=== PATIENT | male | born 2000 | race African-American/Black ===

== ENCOUNTER 2021-03-24 08:49 | Emergency (ER) | payer OTHER, SELFPAY ==
--- NOTE | ~2021-03-24 | XR_ITS ---
EXAMINATION: XR humerus RT INDICATION: Right arm pain, initial encounter TECHNIQUE: Two views of the right humerus are obtained on three radiographs. COMPARISON: None available FINDINGS: There is an acute, traumatic, closed, mildly comminuted transverse fracture in the proximal shaft of the right humerus. Alignment at the shoulder and elbow appears normal. No additional acute osseous findings are evident. IMPRESSION: 1. Acute comminuted fracture of the proximal humerus. Reviewed, dictated and finalized at location A. HEN OPERATOR
[2021-03-24 09:06] VITALS: BP 133/68; PULSE 89; RESP 18; TEMP 36.4; O2SAT 100
--- NOTE | 2021-03-24 10:42 | ED.GENADULT ---
HPI - General Adult General Chief complaint: Extremity Injury, Upper Stated complaint: fall/arm injury Time Seen by Provider: 03/24/21 10:04 Source: patient Mode of arrival: ambulatory Limitations: no limitations History of Present Illness HPI narrative: Patient presents for evaluation of pain in the right upper arm. He indicates that this morning his father alarm was going off. He slept through the alarm. The police came and knocked on his door. When he went to answer the door, he slipped on water. He states his toilet had been overflowing and he was unaware of this. He landed on his right arm. He hit his head. He did not have a LOC. He is not on blood thinners. He states his pain level is 10/10 without radicular component. He does not provide me with a descriptive quality to the pain. No paresthesias. He is right hand dominant. He has not taken any medication to assist with his symptoms. He denies any other injuries. No additional complaints or concerns. Related Data Home Medications Medication Instructions Recorded Confirmed albuterol 90 mcg INHALATION PRN 03/24/21 03/24/21 Allergies Allergy/AdvReac Type Severity Reaction Status Date / Time egg Allergy Anaphylaxis Verified 03/24/21 09:09 Fish Containing Products Allergy Anaphylaxis Verified 03/24/21 09:09 tree nut Allergy Anaphylaxis Verified 03/24/21 09:09 dairy Allergy Anaphylaxis Uncoded 03/24/21 09:09 Review of Systems Review of Systems: CONSTITUTIONAL: Denies fever, chills, or sweats. EYES: Denies visual changes, redness, or discharge. ENT: Denies rhinorrhea, congestion, sore throat, or otalgia. CARDIOVASCULAR: Denies chest pain, palpitations, or edema. RESPIRATORY: Denies cough or dyspnea. GASTROINTESTINAL: Denies abdominal pain, nausea, vomiting, or diarrhea. GENITOURINARY: Denies dysuria or hematuria. SKIN: Denies rash or itching. MUSCULOSKELETAL: Reports pain in right upper arm. Denies back pain or myalgia. NEUROLOGIC: Denies headache, numbness, dizziness, or weakness. PSYCHIATRIC: Denies anxiety or depression. [facility] Past Medical History Medical History (Updated 03/24/21 @ 10:50 by Bandar Westfall, SERVICE ASSOCIATE, ) Asthma Surgical History Surgical History No pertinent past surgical history Family History Family History Mother No pertinent past medical history Social History Social History Smoking status: Never smoker Substance use: never Living arrangements: with roommate(s) Additional living arrangements comments: student apartment Occupation/Education: student Gender identity (if verbalized by the patient): Male Spiritual care concerns: No Exam Narrative: GENERAL: Well-appearing, well-nourished, and in no acute distress. HEAD: Normocephalic, atraumatic. EYES: PERRLA and EOMI. ENT: Nares clear, no rhinorrhea or epistaxis. Mucous membranes moist. Oropharynx without tonsillar hypertrophy exudate or other lesions. Bilateral TMs pearly oviedo nonbulging NECK: Supple. No adenopathy or masses. No carotid bruits or JVD CHEST: Clear to auscultation. No respiratory distress. No wheezes rales or rhonchi HEART: Regular rate and rhythm. No murmur heard. Normal peripheral pulses. ABDOMEN: Soft, nontender, nondistended, normal active bowel sounds. EXTREMITIES: Tenderness noted in proximal aspect of right upper arm. There is swelling present in right upper arm. Decreased ROM of right shoulder. Sensation intact throughout right upper extremity. Radial pulse 2+ SKIN: Warm, dry, no rash. NEURO: No focal deficits. Alert and oriented x3. PSYCH: Normal mood and affect. Course Course Emergency Course: This is a 20-year-old male who presented with complaints of right upper arm pain after experiencing a fall this morning. X-ray showed comminuted fractu
[2021-03-24] MEDS: oxyCODONE/ACETAMINOPHEN (*CRX) 5-325 MG TABLET 2 TABLET PO (11:20)
[2021-03-24] MEDS: ONDANSETRON HCL ODT 4 MG TABLET PO (11:20)
== END 2021-03-25 03:26 | disposition home or self-care (01) ==
PROVIDERS: Emergency Provider Nurse Practitioner
DX: S42.294A Other nondisplaced fracture of upper end of right humerus, initial encounter for closed fracture (principal); J45.909 Unspecified asthma, uncomplicated; W01.0XXA Fall on same level from slipping, tripping and stumbling without subsequent striking against object, initial encounter
CPT/HCPCS: 73060; 99284; A9270

== ENCOUNTER 2024-07-01 06:21 | Emergency (ER) | payer OTHER, SELFPAY ==
[2024-07-01] VITALS (25 sets, daily range): BP systolic 81–106; BP diastolic 36–63; PULSE 116–145; RESP 12–34; TEMP 36.7–37.6; O2SAT 79–100
--- NOTE | ~2024-07-01 | US_ITS ---
EXAMINATION: US abdomen complete DATE: 07/01/2024 11:29 INDICATION: Evaluate liver. Fever. Abnormal labs. TECHNIQUE: Multiple grayscale and Doppler ultrasound images of the abdomen were obtained. COMPARISON: None FINDINGS: The pancreatic head and body are normal in appearance. The pancreatic tail is not visualized. Visual ized proximal to mid inferior vena cava is normal. The cephalad abdominal aorta measures 1.2 cm in ma ximal diameter. Liver has normal contour, with a smooth surface. There is increased parenchymal echog enicity and coarsened echotexture consistent with diffuse hepatic steatosis. No liver lesion identifi ed. No intrahepatic biliary duct dilation suspected. Portal venous flow was seen in the hepatopetal, normal direction and has normal Doppler waveform. There is edematous-appearing wall thickening of th e nondilated gallbladder which measures up to 6 mm in thickness at the fundus. There appears be a min imal amount of gallbladder sludge at the neck of the gallbladder. No shadowing cholelithiasis. Sonogr aphic Valdovinos sign was reported as negative by the credit compliance officer. The common bile duct measures 3 mm russell meter which is normal. There is normal renal contour and echogenicity bilaterally. The right kidney m easures 9.1 x 4.1 x 4.8 cm and the left 9.9 x 4.2 x 4.3 cm. There are no focal renal lesions identif ied. There is no hydronephrosis. The spleen is normal measuring 9.2 cm maximal length. IMPRESSION: 1. Edematous-appearing gallbladder wall thickening which could be seen with acute cholecystitis howev er there is no gallbladder dilation, cholelithiasis or sonographic Valdovinos sign to specifically sugges t this and this is more likely related to liver disease such as hepatitis or cirrhosis, right heart f ailure, renal failure, sepsis or other generalized edema forming states. 2. No intra or extrahepatic biliary ductal dilation. 3. Diffuse hepatic steatosis. Reviewed, dictated and finalized at location A. OWS SERVER ENGINEER IMPRESSION: 1. Edematous-appearing gallbladder wall thickening which could be seen with acu te cholecystitis however there is no gallbladder dilation, cholelithiasis or so nographic Valdovinos sign to specifically suggest this and this is more likely rela ena to liver disease such as hepatitis or cirrhosis, right heart failure, renal failure, sepsis or other generalized edema forming states. 2. No intra or extrahepatic biliary ductal dilation. 3. Diffuse hepatic steatosis.
--- NOTE | ~2024-07-01 | CT_ITS ---
EXAMINATION: CTA chest PE protocol DATE: 07/01/2024 08:10 CLASSROOM INSTRUCTOR INDICATION: Boxing TECHNIQUE: Computed tomographic angiography (CTA) of the chest was performed with 100 mL Omnipaque-35 0 intravenous contrast. The dose-length product was 205.70 mGy-cm. Maximum intensity projection 3D-re constructions of the aorta and other arteries were constructed by the technologist on a separate work station. Automated exposure control and iterative reconstruction technique were employed. COMPARISON: Chest x-ray dated 07/01/2023. FINDINGS: Study is technically adequate without evidence for pulmonary embolism. Small pleural effusi ons. There is moderate pericardial effusion. No thoracic lymphadenopathy. There is patchy bilateral a irspace disease, most confluent in the lower lobes, consistent with pneumonia. No endobronchial lesio ns. No pneumothorax. IMPRESSION: 1. Patchy bilateral airspace disease, most confluent in the lower lobes, consistent with pneumonia. 2: Small bilateral pleural effusions, right greater than left. 3: Moderate pericardial effusion. 4: No evidence for pulmonary embolism. Reviewed, dictated and finalized at location B. SROOM INSTRUCTOR IMPRESSION: 1. Patchy bilateral airspace disease, most confluent in the lower lobes, consis tent with pneumonia. 2: Small bilateral pleural effusions, right greater than left. 3: Moderate pericardial effusion. 4: No evidence for pulmonary embolism.
--- NOTE | ~2024-07-01 | XR_ITS ---
Portable chest x-ray Comparison: None Clinical History: Sepsis, hypotension Findings: Lungs are clear, without focal consolidation or pleural effusion. Cardiomediastinal silho uette is stable. Bones and soft tissues are unremarkable. Impression: Clear lungs. Reviewed, dictated and finalized at location M. LAB TECHNOLOGIST Impression: Clear lungs.
--- NOTE | 2024-07-01 06:33 | ECG_ITS ---
Test Date: 2024-07-01 06:40:31 Measurements Intervals Clark Rate: 129 P: 231 FL: 211 QRS: 49 QRSD: 77 T: 65 QT: 314 QTc: 461 Interpretive Statements SINUS TACHYCARDIA WITH FIRST DEGREE AV BLOCK MINIMAL ST DEPRESSION- ANTEROLAT/INF LEADS ABNORMAL ECG No previous ECG available for comparison Electronically Signed On 07-01-2024 08:02:06 [employer] by Shimon Bailey D.O.
--- NOTE | 2024-07-01 06:35 | ED.GENADULT ---
HPI - General Adult General Chief complaint: Nausea/Vomiting/Diarrhea <Sonya Glasgow MD - Last Filed: 07/01/24 07:14> Stated complaint: lightheaded <Sonya Glasgow MD - Last Filed: 07/01/24 07:14> Time Seen by Provider: 07/01/24 06:33 <Sonya Glasgow MD - Last Filed: 07/01/24 07:14> History of Present Illness HPI narrative: Patient is a 23-year-old male who presents to the emergency department this is complaining of bilateral lower extremity edema, nausea vomiting and diarrhea. Patient states that his symptoms started approximately 1 week ago and have been progressively getting worse. He denies any past medical history other than mild asthma which he uses an inhaler for as needed. Denies any drug use including IV drugs. Denies any alcohol abuse. Denies any family history of cardiovascular disease. Upon EMS arrival, patient was administered 4 mg of IV Zofran for nausea. He was started on IV fluids due to hypotensive with the systolic blood pressure ranging between 70 to 80s. Patient is also tachycardic between 120 to 130s. <Sonya Glasgow MD - Last Filed: 07/01/24 07:14> Related Data Home medications: Home Medications ?Medication ?Instructions ?Recorded ?Confirmed ?Last Taken ?Type albuterol 90 mcg/actuation aerosol 90 mcg inhalation PRN 03/24/21 03/24/21 Unknown History inhaler <Sonya Glasgow MD - Last Filed: 07/01/24 07:14> Allergies/adverse reactions: Allergies Allergy/AdvReac Type Severity Reaction Status Date / Time egg Allergy Anaphylaxis Verified 07/01/24 06:50 Fish Containing Products Allergy Anaphylaxis Verified 07/01/24 06:50 tree nut Allergy Anaphylaxis Verified 07/01/24 06:50 dairy Allergy Anaphylaxis Uncoded 07/01/24 06:50 <Sonya Glasgow MD - Last Filed: 07/01/24 07:14> Review of Systems Review of Systems: All systems are reviewed and are negative unless stated otherwise in the HPI. <Sonya Glasgow MD - Last Filed: 07/01/24 07:14> PMFSH Past Medical History Medical History: Medical History Asthma <Sonya Glasgow MD - Last Filed: 07/01/24 07:14> Surgical History Surgical History: Surgical History No pertinent past surgical history <Sonya Glasgow MD - Last Filed: 07/01/24 07:14> Family History Family History: Family History Mother No pertinent past medical history <Sonya Glasgow MD - Last Filed: 07/01/24 07:14> Social History Social History: Social History Smoking status: Never smoker Substance use: never Living arrangements: with roommate(s) Additional living arrangements comments: student apartment Occupation/Education: student Gender identity (if verbalized by the patient): Male Spiritual care concerns: No <Sonya Glasgow MD - Last Filed: 07/01/24 07:14> Exam Narrative: General: Alert, awake, afebrile, in no acute distress. HEENT: PERRL, no rhinorrhea, no post nasal drip, oropharynx clear. Neck: Trachea midline, no JVD, no lymphadenopathy. Cardiovascular: Tachycardic with regular rhythm, no murmurs, rubs or gallops, bilateral lower extremity edema. Respiratory: Clear to auscultation bilaterally, no tachypnea, no wheezing, no rhonchi, no rubs, no respiratory distress. Abdomen: Soft, nontender, nondistended, no rebound, no guarding, no peritoneal signs. Musculoskeletal: No joint swelling or deformity, normal muscle tone. Skin: No rashes or petechia, no signs of infection. Psychiatric: Alert and oriented, normal behavior and judgment for situation. Neurological: Alert and oriented to person, place, and time. Follows all commands. No focal deficits, speech is clear and fluent. <Sonya Glasgow MD - Last Filed: 07/01/24 07:14> Course Course Emergency Course: 1035: Patient is a very complex case. Discussed with ICU and Cardiology here, unfortunately we do not have hematology and there appears to be a component of vitamin deficiency and potentially hemolytic anemia. Adolph test added on. IM B12 being given. Will also give IV steroids and transfuse 2 units. I have been in touch with [facility] in [place]. Dr. Valles with the hospitalist service has accepted the patient for transfer. He would like the patient received an abdominal ultrasound and we are still waiting urine results. Will contact them. I have spoken with the patient and his mother. Patient has received IV calcium gluconate as well as IV Zosyn and vancomycin for pneumonia. Blood was cultured. He received 2 L of IV fluid for fluid resuscitation. 1203: Re-contacted Dr. Valles. Updated him on patient's condition, blood pressure still in the upper 80s and heart rate in the 120s. We discussed the ultrasound that was requested as well as urinalysis. Discussed possible central line but it is felt that patient needs blood and albumin that is about be started as opposed to additional saline boluses or vasopressors at this time. We now have a bed at the facility in are arranging transport. <Ry Ha MD - Last Filed: 07/01/24 12:04> Vital Signs Vital signs: Vital Signs Temperature 99.1 F 07/01/24 06:27 Pulse Rate 126 H 07/01/24 06:27 Respiratory Rate 23 H 07/01/24 06:27 Blood Pressure 89/36 L 07/01/24 06:27 Pulse Oximetry 79 L 07/01/24 06:27 Oxygen Delivery Room Air 07/01/24 06:27 Temperature 98.1 F 07/01/24 11:52 Pulse Rate 130 H 07/01/24 11:52 Respiratory Rate 25 H 07/01/24 11:52 Blood Pressure 83/42 L 07/01/24 11:52 Pulse Oximetry 97 07/01/24 11:52 Oxygen Delivery Nasal Cannula 07/01/24 06:39 Oxygen Flow Rate 3 07/01/24 06:39 <Sonya Glasgow MD - Last Filed: 07/01/24 07:14> Vital Signs Temperature 99.1 F 07/01/24 06:27 Pulse Rate 126 H 07/01/24 06:27 Respiratory Rate 23 H 07/01/24 06:27 Blood Pressure 89/36 L 07/01/24 06:27 Pulse Oximetry 79 L 07/01/24 06:27 Oxygen Delivery Room Air 07/01/24 06:27 Temperature 98.1 F 07/01/24 11:52 Pulse Rate 130 H 07/01/24 11:52 Respiratory Rate 25 H 07/01/24 11:52 Blood Pressure 83/42 L 07/01/24 11:52 Pulse Oximetry 97 07/01/24 11:52 Oxygen Delivery Nasal Cannula 07/01/24 06:39 Oxygen Flow Rate 3 07/01/24 06:39 <Ry Ha MD - Last Filed: 07/01/24 12:04> Medical Decision Making MDM Narrative Medical decision making narrative: The patient was evaluated by myself in the emergency department. History is obtained from patient who is an independent historian along with EMS report and physical exam was performed. External medical records were reviewed at this time. IV was established and pertinent tests were ordered. Patient was noted to be hypoxic with an SpO2 of 79% on room air and he was placed on 2 L nasal cannula. Patient was administered full sepsis bolus with normal saline and started on IV antibiotics with vancomycin and Zosyn due to concern for septic shock pending source identification. EKG was obtained which revealed sinus tachycardia rate of 129 beats per minute. No ST changes, T wave inversions or evidence of acute ischemia. EKG was independently interpreted by me and is currently pending official cardiology read. Imaging studies were obtained at this time including a portable chest x-ray which revealed clear lungs, cardiomegaly. Chest x-ray currently pending official radiology read. Patient was signed out to AM ED physician pending remainder of the workup. <Sonya Glasgow MD - Last Filed: 07/01/24 07:14> Vital Signs Vital Signs: Vital Signs Temperature 99.1 F 07/01/24 06:27 Pulse Rate 126 H 07/01/24 06:27 Respiratory Rate 23 H 07/01/24 06:27 Blood Pressure 89/36 L 07/01/24 06:27 Pulse Oximetry 79 L 07/01/24 06:27 Oxygen Delivery Room Air 07/01/24 06:27 Temperature 98.1 F 07/01/24 11:52 Pulse Rate 130 H 07/01/24 11:52 Respiratory Rate 25 H 07/01/24 11:52 Blood Pressure 83/42 L 07/01/24 11:52 Pulse Oximetry 97 07/01/24 11:52 Oxygen Delivery Nasal Cannula 07/01/24 06:39 Oxygen Flow Rate 3 07/01/24 06:39 <Sonya Glasgow MD - Last Filed: 07/01/24 07:14> Vital Signs Temperature 99.1 F 07/01/24 06:27 Pulse Rate 126 H 07/01/24 06:27 Respiratory Rate 23 H 07/01/24 06:27 Blood Pressure 89/36 L 07/01/24 06:27 Pulse Oximetry 79 L 07/01/24 06:27 Oxygen Delivery Room Air 07/01/24 06:27 Temperature 98.1 F 07/01/24 11:52 Pulse Rate 130 H 07/01/24 11:52 Respiratory Rate 25 H 07/01/24 11:52 Blood Pressure 83/42 L 07/01/24 11:52 Pulse Oximetry 97 07/01/24 11:52 Oxygen Delivery Nasal Cannula 07/01/24 06:39 Oxygen Flow Rate 3 07/01/24 06:39 <Ry Ha MD - Last Filed: 07/01/24 12:04> Lab Data Result diagrams: 07/01/24 06:44 07/01/24 06:44 <Sonya Glasgow MD - Last Filed: 07/01/24 07:14> Labs: Lab Results 07/01/24 07/01/24 07/01/24 Range/Units 06:44 06:53 07:14 WBC 4.6 (4.5-10.0) K/mm3 RBC 1.21 L (4.6-6.20) M/mm3 Hgb 5.4 L* (14.0-18.0) g/dL Hct 16.7 L* (42.0-52.0) % MCV 138.0 H (80-100) fl MCH 44.6 H (26-34) pg MCHC 32.3 (32-36) g/dl RDW 28.8 H (11.5-14.5) % Plt Count 225 (150-375) k/mm3 MPV 12.1 H (7.4-10.4) fl Immature Gran % (Auto) Not Reportable Neut % (Auto) Not Reportable Lymph % (Auto) Not Reportable [place] % (Auto) Not Reportable Eos % (Auto) Not Reportable Baso % (Auto) Not Reportable Lymph # (Auto) Not Reportable [place] # (Auto) Not Reportable Eos # (Auto) Not Reportable Baso # (Auto) Not Reportable Abs Immat Gran (auto) Not Reportable Absolute Neuts (auto) Not Reportable Absolute Nucleated RBC Not Reportable Total Counted 100 Neutrophils % (Manual) 86 H (46-73) % Band Neutrophils % 8 H (0-6) % Lymphocytes % (Manual) 5 L (18-44) % Monocytes % (Manual) 1 L (3-9) % Nucleated RBC % Not Reportable Abs Neuts (Manual) 4.32 (1.3-6.7) K/mm3 Abs Lymphs (Manual) 0.23 L (1.1-4.5) K/mm3 Abs Monocytes (Manual) 0.04 L (0.1-0.90) K/mm3 Nucleated RBCs 4 % Platelet Estimate Adequate (Adequate) Large Platelets Present Giant Platelets Present Hypochromasia 2+ Poikilocytosis 2+ Anisocytosis 3+ Target Cells 1+ Tear Drop Cells 2+ Ovalocytes 2+ Helmet Cells 1+ Acanthocytes (Spur) 1+ Schistocytes 1+ Absolute Retic 0.05 (0.02-0.10) 10^6/uL Percent Retic 4.03 (0.7-4.3) % Immature Retic Fraction 24.7 H (3.0-15.9) % Retic Hgb Content 40.4 H (28.2-36.6) pg PT 27.0 H (11.1-14.7) Seconds INR 2.5 APTT 42.5 H (22.3-36.8) Seconds Sodium 140 (137-145) mmol/L Potassium 3.6 (3.4-5.0) mmol/L Chloride 113 H (98-107) mmol/L Carbon Dioxide 20 L (22-30) mmol/L Anion Gap 7 (4-12) mmol/L BUN 5 L (9-20) mg/dL Creatinine 0.65 L (0.7-1.3) mg/dL Estim Creat Clear Calc 129 ml/min Estimated GFR > 60 (59 - ) Glucose 99 (65-110) mg/dL POC Capillary Glucose 66 (65-105) mg/dl Lactic Acid 3.7 H (0.7-2.0) mmol/L Calcium 4.4 L* (8.4-10.2) mg/dL Magnesium 1.6 (1.6-2.3) mg/dL Iron 34 L (49-181) ug/dL TIBC 101 L (265-497) ug/dL % Saturation 34 (20-50) % Ferritin 156.00 (17.9-464) ng/mL Total Bilirubin 1.7 H (0.2-1.3) mg/dL AST 38 (17-59) U/L ALT 19 (6-50) U/L Alkaline Phosphatase 94 (38-126) U/L Lactate Dehydrogenase 939 H (120-246) U/L Troponin I 0.024 (0.000-0.034) ng/mL NT-Pro-B Natriuret Pep 570 H (19.9-100) pg/mL Total Protein 5.0 L (6.3-8.2) g/dL Albumin 1.8 L (3.5-5.1) g/dL Lipase 27 (23-300) U/L Vitamin B12 < 159.0 L (239-931) pg/mL Folate 4.9 (2.76->20) ng/mL TSH (Reflex) 2.050 (0.465-4.68) uIU/mL Urine Color (Yellow) Urine Appearance (Clear) Urine pH (5.0-9.0) Ur Specific [place] (1.001-1.035) Urine Protein (Negative) mg/dL Urine Glucose (UA) (Negative) mg/dL Urine Ketones (Negative) mg/dL Ur Blood (Man) (Negative) Urine Nitrate (Negative) Urine Bilirubin (Negative) Urine Urobilinogen (<2.0) mg/dL Add Ur Microanalysis Leukocyte Esterase Rfl (Negative) PAYTON/UL Urine RBC (0-2) /hpf Urine WBC (0-3) /hpf Ur Squamous Epith Cells (Few) /hpf Urine Bacteria /hpf Urine Casts Hyaline Casts (None) /lpf Nasal MRSA (PCR) (NOT DETECTE) Influenza A (RT-PCR) Negative (Negative) Influenza B (RT-PCR) Negative (Negative) RSV (RT-PCR) Negative (Negative) SARS-CoV-2 RNA (RT-PCR) Negative (Negative) Blood Type Antibody Screen CARMEN, Poly Interpret Crossmatch 07/01/24 07/01/24 07/01/24 Range/Units 07:16 07:18 10:19 WBC (4.5-10.0) K/mm3 RBC (4.6-6.20) M/mm3 Hgb (14.0-18.0) g/dL Hct (42.0-52.0) % MCV (80-100) fl MCH (26-34) pg MCHC (32-36) g/dl RDW (11.5-14.5) % Plt Count (150-375) k/mm3 MPV (7.4-10.4) fl Immature Gran % (Auto) Neut % (Auto) Lymph % (Auto) [place] % (Auto) Eos % (Auto) Baso % (Auto) Lymph # (Auto) [place] # (Auto) Eos # (Auto) Baso # (Auto) Abs Immat Gran (auto) Absolute Neuts (auto) Absolute Nucleated RBC Total Counted Neutrophils % (Manual) (46-73) % Band Neutrophils % (0-6) % Lymphocytes % (Manual) (18-44) % Monocytes % (Manual) (3-9) % Nucleated RBC % Abs Neuts (Manual) (1.3-6.7) K/mm3 Abs Lymphs (Manual) (1.1-4.5) K/mm3 Abs Monocytes (Manual) (0.1-0.90) K/mm3 Nucleated RBCs % Platelet Estimate (Adequate) Large Platelets Giant Platelets Hypochromasia Poikilocytosis Anisocytosis Target Cells Tear Drop Cells Ovalocytes Helmet Cells Acanthocytes (Spur) Schistocytes Absolute Retic (0.02-0.10) 10^6/uL Percent Retic (0.7-4.3) % Immature Retic Fraction (3.0-15.9) % Retic Hgb Content (28.2-36.6) pg PT (11.1-14.7) Seconds INR APTT (22.3-36.8) Seconds Sodium (137-145) mmol/L Potassium (3.4-5.0) mmol/L Chloride (98-107) mmol/L Carbon Dioxide (22-30) mmol/L Anion Gap (4-12) mmol/L BUN (9-20) mg/dL Creatinine (0.7-1.3) mg/dL Estim Creat Clear Calc ml/min Estimated GFR (59 - ) Glucose (65-110) mg/dL POC Capillary Glucose (65-105) mg/dl Lactic Acid 4.7 H* (0.7-2.0) mmol/L Calcium (8.4-10.2) mg/dL Magnesium (1.6-2.3) mg/dL Iron (49-181) ug/dL TIBC (265-497) ug/dL % Saturation (20-50) % Ferritin (17.9-464) ng/mL Total Bilirubin (0.2-1.3) mg/dL AST (17-59) U/L ALT (6-50) U/L Alkaline Phosphatase (38-126) U/L Lactate Dehydrogenase (120-246) U/L Troponin I (0.000-0.034) ng/mL NT-Pro-B Natriuret Pep (19.9-100) pg/mL Total Protein (6.3-8.2) g/dL Albumin (3.5-5.1) g/dL Lipase (23-300) U/L Vitamin B12 (239-931) pg/mL Folate (2.76->20) ng/mL TSH (Reflex) (0.465-4.68) uIU/mL Urine Color (Yellow) Urine Appearance (Clear) Urine pH (5.0-9.0) Ur Specific [place] (1.001-1.035) Urine Protein (Negative) mg/dL Urine Glucose (UA) (Negative) mg/dL Urine Ketones (Negative) mg/dL Ur Blood (Man) (Negative) Urine Nitrate (Negative) Urine Bilirubin (Negative) Urine Urobilinogen (<2.0) mg/dL Add Ur Microanalysis Leukocyte Esterase Rfl (Negative) PAYTON/UL Urine RBC (0-2) /hpf Urine WBC (0-3) /hpf Ur Squamous Epith Cells (Few) /hpf Urine Bacteria /hpf Urine Casts Hyaline Casts (None) /lpf Nasal MRSA (PCR) Not detected (NOT DETECTE) Influenza A (RT-PCR) (Negative) Influenza B (RT-PCR) (Negative) RSV (RT-PCR) (Negative) SARS-CoV-2 RNA (RT-PCR) (Negative) Blood Type A Positive Antibody Screen Negative CARMEN, Poly Interpret Neg Crossmatch See Detail 07/01/24 Range/Units 10:45 WBC (4.5-10.0) K/mm3 RBC (4.6-6.20) M/mm3 Hgb (14.0-18.0) g/dL Hct (42.0-52.0) % MCV (80-100) fl MCH (26-34) pg MCHC (32-36) g/dl RDW (11.5-14.5) % Plt Count (150-375) k/mm3 MPV (7.4-10.4) fl Immature Gran % (Auto) Neut % (Auto) Lymph % (Auto) [place] % (Auto) Eos % (Auto) Baso % (Auto) Lymph # (Auto) [place] # (Auto) Eos # (Auto) Baso # (Auto) Abs Immat Gran (auto) Absolute Neuts (auto) Absolute Nucleated RBC Total Counted Neutrophils % (Manual) (46-73) % Band Neutrophils % (0-6) % Lymphocytes % (Manual) (18-44) % Monocytes % (Manual) (3-9) % Nucleated RBC % Abs Neuts (Manual) (1.3-6.7) K/mm3 Abs Lymphs (Manual) (1.1-4.5) K/mm3 Abs Monocytes (Manual) (0.1-0.90) K/mm3 Nucleated RBCs % Platelet Estimate (Adequate) Large Platelets Giant Platelets Hypochromasia Poikilocytosis Anisocytosis Target Cells Tear Drop Cells Ovalocytes Helmet Cells Acanthocytes (Spur) Schistocytes Absolute Retic (0.02-0.10) 10^6/uL Percent Retic (0.7-4.3) % Immature Retic Fraction (3.0-15.9) % Retic Hgb Content (28.2-36.6) pg PT (11.1-14.7) Seconds INR APTT (22.3-36.8) Seconds Sodium (137-145) mmol/L Potassium (3.4-5.0) mmol/L Chloride (98-107) mmol/L Carbon Dioxide (22-30) mmol/L Anion Gap (4-12) mmol/L BUN (9-20) mg/dL Creatinine (0.7-1.3) mg/dL Estim Creat Clear Calc ml/min Estimated GFR (59 - ) Glucose (65-110) mg/dL POC Capillary Glucose (65-105) mg/dl Lactic Acid (0.7-2.0) mmol/L Calcium (8.4-10.2) mg/dL Magnesium (1.6-2.3) mg/dL Iron (49-181) ug/dL TIBC (265-497) ug/dL % Saturation (20-50) % Ferritin (17.9-464) ng/mL Total Bilirubin (0.2-1.3) mg/dL AST (17-59) U/L ALT (6-50) U/L Alkaline Phosphatase (38-126) U/L Lactate Dehydrogenase (120-246) U/L Troponin I (0.000-0.034) ng/mL NT-Pro-B Natriuret Pep (19.9-100) pg/mL Total Protein (6.3-8.2) g/dL Albumin (3.5-5.1) g/dL Lipase (23-300) U/L Vitamin B12 (239-931) pg/mL Folate (2.76->20) ng/mL TSH (Reflex) (0.465-4.68) uIU/mL Urine Color Yellow (Yellow) Urine Appearance Clear (Clear) Urine pH 7.5 (5.0-9.0) Ur Specific [place] 1.042 H (1.001-1.035) Urine Protein Trace (Negative) mg/dL Urine Glucose (UA) Negative (Negative) mg/dL Urine Ketones Negative (Negative) mg/dL Ur Blood (Man) 2+ H (Negative) Urine Nitrate Positive H (Negative) Urine Bilirubin Negative (Negative) Urine Urobilinogen 1.0 (<2.0) mg/dL Add Ur Microanalysis Reviewed Leukocyte Esterase Rfl 1+ H (Negative) PAYTON/UL Urine RBC 11-20 H (0-2) /hpf Urine WBC 0-5 (0-3) /hpf Ur Squamous Epith Cells None seen (Few) /hpf Urine Bacteria None seen /hpf Urine Casts 3-5 Hyaline Casts Present (None) /lpf Nasal MRSA (PCR) (NOT DETECTE) Influenza A (RT-PCR) (Negative) Influenza B (RT-PCR) (Negative) RSV (RT-PCR) (Negative) SARS-CoV-2 RNA (RT-PCR) (Negative) Blood Type Antibody Screen CARMEN, Poly Interpret Crossmatch <Sonya Glasgow MD - Last Filed: 07/01/24 07:14> Lab Results 07/01/24 07/01/24 07/01/24 Range/Units 06:44 06:53 07:14 WBC 4.6 (4.5-10.0) K/mm3 RBC 1.21 L (4.6-6.20) M/mm3 Hgb 5.4 L* (14.0-18.0) g/dL Hct 16.7 L* (42.0-52.0) % MCV 138.0 H (80-100) fl MCH 44.6 H (26-34) pg MCHC 32.3 (32-36) g/dl RDW 28.8 H (11.5-14.5) % Plt Count 225 (150-375) k/mm3 MPV 12.1 H (7.4-10.4) fl Immature Gran % (Auto) Not Reportable Neut % (Auto) Not Reportable Lymph % (Auto) Not Reportable [place] % (Auto) Not Reportable Eos % (Auto) Not Reportable Baso % (Auto) Not Reportable Lymph # (Auto) Not Reportable [place] # (Auto) Not Reportable Eos # (Auto) Not Reportable Baso # (Auto) Not Reportable Abs Immat Gran (auto) Not Reportable Absolute Neuts (auto) Not Reportable Absolute Nucleated RBC Not Reportable Total Counted 100 Neutrophils % (Manual) 86 H (46-73) % Band Neutrophils % 8 H (0-6) % Lymphocytes % (Manual) 5 L (18-44) % Monocytes % (Manual) 1 L (3-9) % Nucleated RBC % Not Reportable Abs Neuts (Manual) 4.32 (1.3-6.7) K/mm3 Abs Lymphs (Manual) 0.23 L (1.1-4.5) K/mm3 Abs Monocytes (Manual) 0.04 L (0.1-0.90) K/mm3 Nucleated RBCs 4 % Platelet Estimate Adequate (Adequate) Large Platelets Present Giant Platelets Present Hypochromasia 2+ Poikilocytosis 2+ Anisocytosis 3+ Target Cells 1+ Tear Drop Cells 2+ Ovalocytes 2+ Helmet Cells 1+ Acanthocytes (Spur) 1+ Schistocytes 1+ Absolute Retic 0.05 (0.02-0.10) 10^6/uL Percent Retic 4.03 (0.7-4.3) % Immature Retic Fraction 24.7 H (3.0-15.9) % Retic Hgb Content 40.4 H (28.2-36.6) pg PT 27.0 H (11.1-14.7) Seconds INR 2.5 APTT 42.5 H (22.3-36.8) Seconds Sodium 140 (137-145) mmol/L Potassium 3.6 (3.4-5.0) mmol/L Chloride 113 H (98-107) mmol/L Carbon Dioxide 20 L (22-30) mmol/L Anion Gap 7 (4-12) mmol/L BUN 5 L (9-20) mg/dL Creatinine 0.65 L (0.7-1.3) mg/dL Estim Creat Clear Calc 129 ml/min Estimated GFR > 60 (59 - ) Glucose 99 (65-110) mg/dL POC Capillary Glucose 66 (65-105) mg/dl Lactic Acid 3.7 H (0.7-2.0) mmol/L Calcium 4.4 L* (8.4-10.2) mg/dL Magnesium 1.6 (1.6-2.3) mg/dL Iron 34 L (49-181) ug/dL TIBC 101 L (265-497) ug/dL % Saturation 34 (20-50) % Ferritin 156.00 (17.9-464) ng/mL Total Bilirubin 1.7 H (0.2-1.3) mg/dL AST 38 (17-59) U/L ALT 19 (6-50) U/L Alkaline Phosphatase 94 (38-126) U/L Lactate Dehydrogenase 939 H (120-246) U/L Troponin I 0.024 (0.000-0.034) ng/mL NT-Pro-B Natriuret Pep 570 H (19.9-100) pg/mL Total Protein 5.0 L (6.3-8.2) g/dL Albumin 1.8 L (3.5-5.1) g/dL Lipase 27 (23-300) U/L Vitamin B12 < 159.0 L (239-931) pg/mL Folate 4.9 (2.76->20) ng/mL TSH (Reflex) 2.050 (0.465-4.68) uIU/mL Urine Color (Yellow) Urine Appearance (Clear) Urine pH (5.0-9.0) Ur Specific [place] (1.001-1.035) Urine Protein (Negative) mg/dL Urine Glucose (UA) (Negative) mg/dL Urine Ketones (Negative) mg/dL Ur Blood (Man) (Negative) Urine Nitrate (Negative) Urine Bilirubin (Negative) Urine Urobilinogen (<2.0) mg/dL Add Ur Microanalysis Leukocyte Esterase Rfl (Negative) PAYTON/UL Urine RBC (0-2) /hpf Urine WBC (0-3) /hpf Ur Squamous Epith Cells (Few) /hpf Urine Bacteria /hpf Urine Casts Hyaline Casts (None) /lpf Nasal MRSA (PCR) (NOT DETECTE) Influenza A (RT-PCR) Negative (Negative) Influenza B (RT-PCR) Negative (Negative) RSV (RT-PCR) Negative (Negative) SARS-CoV-2 RNA (RT-PCR) Negative (Negative) Blood Type Antibody Screen CARMEN, Poly Interpret Crossmatch 07/01/24 07/01/24 07/01/24 Range/Units 07:16 07:18 10:19 WBC (4.5-10.0) K/mm3 RBC (4.6-6.20) M/mm3 Hgb (14.0-18.0) g/dL Hct (42.0-52.0) % MCV (80-100) fl MCH (26-34) pg MCHC (32-36) g/dl RDW (11.5-14.5) % Plt Count (150-375) k/mm3 MPV (7.4-10.4) fl Immature Gran % (Auto) Neut % (Auto) Lymph % (Auto) [place] % (Auto) Eos % (Auto) Baso % (Auto) Lymph # (Auto) [place] # (Auto) Eos # (Auto) Baso # (Auto) Abs Immat Gran (auto) Absolute Neuts (auto) Absolute Nucleated RBC Total Counted Neutrophils % (Manual) (46-73) % Band Neutrophils % (0-6) % Lymphocytes % (Manual) (18-44) % Monocytes % (Manual) (3-9) % Nucleated RBC % Abs Neuts (Manual) (1.3-6.7) K/mm3 Abs Lymphs (Manual) (1.1-4.5) K/mm3 Abs Monocytes (Manual) (0.1-0.90) K/mm3 Nucleated RBCs % Platelet Estimate (Adequate) Large Platelets Giant Platelets Hypochromasia Poikilocytosis Anisocytosis Target Cells Tear Drop Cells Ovalocytes Helmet Cells Acanthocytes (Spur) Schistocytes Absolute Retic (0.02-0.10) 10^6/uL Percent Retic (0.7-4.3) % Immature Retic Fraction (3.0-15.9) % Retic Hgb Content (28.2-36.6) pg PT (11.1-14.7) Seconds INR APTT (22.3-36.8) Seconds Sodium (137-145) mmol/L Potassium (3.4-5.0) mmol/L Chloride (98-107) mmol/L Carbon Dioxide (22-30) mmol/L Anion Gap (4-12) mmol/L BUN (9-20) mg/dL Creatinine (0.7-1.3) mg/dL Estim Creat Clear Calc ml/min Estimated GFR (59 - ) Glucose (65-110) mg/dL POC Capillary Glucose (65-105) mg/dl Lactic Acid 4.7 H* (0.7-2.0) mmol/L Calcium (8.4-10.2) mg/dL Magnesium (1.6-2.3) mg/dL Iron (49-181) ug/dL TIBC (265-497) ug/dL % Saturation (20-50) % Ferritin (17.9-464) ng/mL Total Bilirubin (0.2-1.3) mg/dL AST (17-59) U/L ALT (6-50) U/L Alkaline Phosphatase (38-126) U/L Lactate Dehydrogenase (120-246) U/L Troponin I (0.000-0.034) ng/mL NT-Pro-B Natriuret Pep (19.9-100) pg/mL Total Protein (6.3-8.2) g/dL Albumin (3.5-5.1) g/dL Lipase (23-300) U/L Vitamin B12 (239-931) pg/mL Folate (2.76->20) ng/mL TSH (Reflex) (0.465-4.68) uIU/mL Urine Color (Yellow) Urine Appearance (Clear) Urine pH (5.0-9.0) Ur Specific [place] (1.001-1.035) Urine Protein (Negative) mg/dL Urine Glucose (UA) (Negative) mg/dL Urine Ketones (Negative) mg/dL Ur Blood (Man) (Negative) Urine Nitrate (Negative) Urine Bilirubin (Negative) Urine Urobilinogen (<2.0) mg/dL Add Ur Microanalysis Leukocyte Esterase Rfl (Negative) PAYTON/UL Urine RBC (0-2) /hpf Urine WBC (0-3) /hpf Ur Squamous Epith Cells (Few) /hpf Urine Bacteria /hpf Urine Casts Hyaline Casts (None) /lpf Nasal MRSA (PCR) Not detected (NOT DETECTE) Influenza A (RT-PCR) (Negative) Influenza B (RT-PCR) (Negative) RSV (RT-PCR) (Negative) SARS-CoV-2 RNA (RT-PCR) (Negative) Blood Type A Positive Antibody Screen Negative CARMEN, Poly Interpret Neg Crossmatch See Detail 07/01/24 Range/Units 10:45 WBC (4.5-10.0) K/mm3 RBC (4.6-6.20) M/mm3 Hgb (14.0-18.0) g/dL Hct (42.0-52.0) % MCV (80-100) fl MCH (26-34) pg MCHC (32-36) g/dl RDW (11.5-14.5) % Plt Count (150-375) k/mm3 MPV (7.4-10.4) fl Immature Gran % (Auto) Neut % (Auto) Lymph % (Auto) [place] % (Auto) Eos % (Auto) Baso % (Auto) Lymph # (Auto) [place] # (Auto) Eos # (Auto) Baso # (Auto) Abs Immat Gran (auto) Absolute Neuts (auto) Absolute Nucleated RBC Total Counted Neutrophils % (Manual) (46-73) % Band Neutrophils % (0-6) % Lymphocytes % (Manual) (18-44) % Monocytes % (Manual) (3-9) % Nucleated RBC % Abs Neuts (Manual) (1.3-6.7) K/mm3 Abs Lymphs (Manual) (1.1-4.5) K/mm3 Abs Monocytes (Manual) (0.1-0.90) K/mm3 Nucleated RBCs % Platelet Estimate (Adequate) Large Platelets Giant Platelets Hypochromasia Poikilocytosis Anisocytosis Target Cells Tear Drop Cells Ovalocytes Helmet Cells Acanthocytes (Spur) Schistocytes Absolute Retic (0.02-0.10) 10^6/uL Percent Retic (0.7-4.3) % Immature Retic Fraction (3.0-15.9) % Retic Hgb Content (28.2-36.6) pg PT (11.1-14.7) Seconds INR APTT (22.3-36.8) Seconds Sodium (137-145) mmol/L Potassium (3.4-5.0) mmol/L Chloride (98-107) mmol/L Carbon Dioxide (22-30) mmol/L Anion Gap (4-12) mmol/L BUN (9-20) mg/dL Creatinine (0.7-1.3) mg/dL Estim Creat Clear Calc ml/min Estimated GFR (59 - ) Glucose (65-110) mg/dL POC Capillary Glucose (65-105) mg/dl Lactic Acid (0.7-2.0) mmol/L Calcium (8.4-10.2) mg/dL Magnesium (1.6-2.3) mg/dL Iron (49-181) ug/dL TIBC (265-497) ug/dL % Saturation (20-50) % Ferritin (17.9-464) ng/mL Total Bilirubin (0.2-1.3) mg/dL AST (17-59) U/L ALT (6-50) U/L Alkaline Phosphatase (38-126) U/L Lactate Dehydrogenase (120-246) U/L Troponin I (0.000-0.034) ng/mL NT-Pro-B Natriuret Pep (19.9-100) pg/mL Total Protein (6.3-8.2) g/dL Albumin (3.5-5.1) g/dL Lipase (23-300) U/L Vitamin B12 (239-931) pg/mL Folate (2.76->20) ng/mL TSH (Reflex) (0.465-4.68) uIU/mL Urine Color Yellow (Yellow) Urine Appearance Clear (Clear) Urine pH 7.5 (5.0-9.0) Ur Specific [place] 1.042 H (1.001-1.035) Urine Protein Trace (Negative) mg/dL Urine Glucose (UA) Negative (Negative) mg/dL Urine Ketones Negative (Negative) mg/dL Ur Blood (Man) 2+ H (Negative) Urine Nitrate Positive H (Negative) Urine Bilirubin Negative (Negative) Urine Urobilinogen 1.0 (<2.0) mg/dL Add Ur Microanalysis Reviewed Leukocyte Esterase Rfl 1+ H (Negative) PAYTON/UL Urine RBC 11-20 H (0-2) /hpf Urine WBC 0-5 (0-3) /hpf Ur Squamous Epith Cells None seen (Few) /hpf Urine Bacteria None seen /hpf Urine Casts 3-5 Hyaline Casts Present (None) /lpf Nasal MRSA (PCR) (NOT DETECTE) Influenza A (RT-PCR) (Negative) Influenza B (RT-PCR) (Negative) RSV (RT-PCR) (Negative) SARS-CoV-2 RNA (RT-PCR) (Negative) Blood Type Antibody Screen CARMEN, Poly Interpret Crossmatch <Ry Ha MD - Last Filed: 07/01/24 12:04> ECG Data EKG #1: ECG completion date: 07/01/24 <Ry Ha MD - Last Filed: 07/01/24 12:04> ECG completion time: 06:40 <Ry Ha MD - Last Filed: 07/01/24 12:04> EKG Interpretation: tachycardia (129), sinus rhythm, non-specific ST changes, normal QRS, normal QT and NL axis <Ry Ha MD - Last Filed: 07/01/24 12:04> Critical Care Time Critical Care Time Critical Care Time: Yes <Ry Ha MD - Last Filed: 07/01/24 12:04> Total Critical Care Time: 45 <Ry Ha MD - Last Filed: 07/01/24 12:04> Discharge Plan Discharge Clinical Impression: Pneumonia, Anemia, B12 deficiency, Respiratory failure, Hypocalcemia <Sonya Glasgow MD - Last Filed: 07/01/24 07:14> Patient Disposition: Acute Care Hospital <Sonya Glasgow MD - Last Filed: 07/01/24 07:14> Condition: Serious <Sonya Glasgow MD - Last Filed: 07/01/24 07:14> Patient Language: British <Sonya Glasgow MD - Last Filed: 07/01/24 07:14> Prescriptions: No Action albuterol 90 mcg/actuation Aerosol 90 mcg INHALATION PRN oxycodone-acetaminophen [Percocet] 5-325 mg tablet 1 - 2 tablet PO Q6H PRN (Reason: pain) Qty: 20 0RF <Sonya Glasgow MD - Last Filed: 07/01/24 07:14> Follow-up/Referrals: PHYSICIAN,COMMERCIAL LIGHT FIXTURE ASSEMBLER [Non-Staff] - <Sonya Glasgow MD - Last Filed: 07/01/24 07:14>
[2024-07-01] MEDS: SODIUM CHLORIDE 0.9% IV 1,000 ML 999 ML IV CONT (06:46)
[2024-07-01 06:54] LABS: Mean Corpuscular HGB Conc 32.3 g/dl (32-36); Mean Corpuscular Hemoglobin 44.6 pg (26-34); Mean Platelet Volume 12.1 fl (7.4-10.4); Platelet Count Result 225 k/mm3 (150-375); Red Blood Count 1.21 M/mm3 (4.6-6.20); Red Cell Distribution Width 28.8 % (11.5-14.5); White Blood Count 4.6 K/mm3 (4.5-10.0)
[2024-07-01 06:55] LABS: Glucose Point of Care 66 mg/dl (65-105)
[2024-07-01 07:01] LABS: Lactic Acid Reflex 3.7 mmol/L (0.7-2.0)
[2024-07-01 07:03] LABS: Alanine Aminotransferase 19 U/L (6-50); Albumin Level 1.8 g/dL (3.5-5.1); Alkaline Phosphatase 94 U/L (38-126); Anion Gap 7 mmol/L (4-12); Aspartate Amino Transferase 38 U/L (17-59); Bilirubin,Total 1.7 mg/dL (0.2-1.3); Blood Urea Nitrogen 5 mg/dL (9-20); Calcium 4.4 mg/dL (8.4-10.2); Carbon Dioxide 20 mmol/L (22-30); Chloride 113 mmol/L (98-107); Estimated CRCL calculation 129 ml/min; Estimated Glomerular Filt Rate > 60; Glucose 99 mg/dL (65-110); Lipase 27 U/L (23-300); Magnesium 1.6 mg/dL (1.6-2.3); Potassium 3.6 mmol/L (3.4-5.0); Sodium 140 mmol/L (137-145)
[2024-07-01 07:05] LABS: Hematocrit 16.7 % (42.0-52.0); Hemoglobin 5.4 g/dL (14.0-18.0)
--- NOTE | 2024-07-01 07:07 | PC.NURSE ---
This RN spoke with pt mother. pt mother states pt has a hx of calcium deficiency
[2024-07-01 07:11] LABS: NT Pro B Type Natriuretic Pept 570 pg/mL (19.9-100); Troponin I 0.024 ng/mL (0.000-0.034)
[2024-07-01 07:19] LABS: Band Neutrophils Percent 8 % (0-6); Giant Platelets Present; Hypochromasia 2+; Large Platelets Present; Lymphocytes Absolute Manual 0.23 K/mm3 (1.1-4.5); Lymphocytes Percent Manual 5 % (18-44); Monocytes Absolute Manual 0.04 K/mm3 (0.1-0.90); Monocytes Percent Manual 1 % (3-9); Neutrophils Absolute Manual 4.32 K/mm3 (1.3-6.7); Neutrophils Percent Manual 86 % (46-73); Nucleated Red Blood Cells 4 %; Platelet Estimate Adequate (Adequate); Total Cells Counted 100
[2024-07-01 07:20] LABS: Acanthocytes 1+; Anisocytosis 3+; Helmet Cells 1+; Ovalocytes 2+; Poikilocytosis 2+; Schistocytes 1+; Target Cells 1+; Tear Drop Cells 2+
[2024-07-01] MEDS: CALCIUM GLUCONATE 1,000 MG/10 ML VIAL 1000 MG IV PUSH (07:21)
[2024-07-01 07:26] LABS: Influenza A QL RT-PCR Negative (Negative); Influenza B QL RT-PCR Negative (Negative); RSV RNA, RT-PCR Negative (Negative); SARS-CoV-2 RNA PCR Negative (Negative)
--- OUTSIDE RECORDS SUMMARY | 2024-07-01 07:26 | XMS_ITS | Clinical Summary ---
Author Organization [facility] Address [address] [place] [address] Care Team Providers Care Container Packer Operator Name Role Phone Pcp Outside [facility], Unknown Primary Care Provider U navailable Allergies Active Allergy Reactions Criticality Noted Date Comments Eggs Or Egg-Derived Products (Food Or Med) Other (See Comments) High 12/15/2013 Fish (Food Or Med) Other (See Comments) High 014 Lactose (Food Or Med) Other (See Comments) High 05/13 Milk (Food Or Med) RASH 11/14/2023 Nuts (Food) Other (See Comments) High 02/29/2008 Medications Medication Sig Dispensed Refills Start Date End Date Status Calcium Carbonate 500 MG Chew Tab Chew 4 tablets by mouth 3 times daily. 360 tablet 3 09/07/2019 Active calcitRIOL (ROCALTROL) 0.25 MCG capsule Take 1 capsule by mouth 2 times daily. 60 capsule 3 09/07/2019 Active HYDROcodone-acetami nophen (NORCO) 5-325 MG per tabletIndications:C losed fracture of pubic ramus, unspecified laterality, initial encounter (CMD) Take 1 tablet by mouth every 4 hours as needed for Pain. 20 tablet 11/16/2023 Active Additional Information Patient not taking.Reported on 11/25/2023 albuterol 108 (90 Base) MCG/ACT inhalerIndications: Mild intermittent asthma without complication (CMD) Inhale 2 puffs into the lungs every 4 hours as needed for Wheezing or Shortness of Breath. 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) 02/22/2018 Avoidant-restrictive food intake disorder (ARFID ) 02/22/2018 Hypocalcemia 06/05/2017 Hypocalcemia 05/03/2017 History of seizure 04/25/2017 Overview (09/09/2019): Due to hypocalcemia- hosp at [facility] Due to hypocalcemia- hosp at [facility] Non-adherence to medical treatment 05/22/2016 Vitamin B12 deficiency 07/11/2015 Short stature 02/26/2015 Elevated IgE level 11/08/2013 Mild persistent asthma, uncomplicated (CMD) 08/09 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 Short stature 01/12/2013 Allergy to other foods 12/27/2010 Allergic rhinitis 02/29/2008 Acute upper respiratory infection 06/10/2006 Asthma (CMD) 11/24/2001 Eczema 03/22/2001 Immunizations Name Administration Dates Next Due DTaP 11/05/2004, 2,04/05/2001,02/03,2000 DTaP, 5 Pertussis Antigens 11/05/2004 HIB, Unspecified Formulation 07/07/2001,02/04/20 01,2000 HPV 9-Valent 12/14/2015 HPV Quadrivalent 12/26/2014 HPV, Unspecified Formulation 12/26/2014,04/07/20 12,03/08/2012 Hep A, Pediatric, Unspecifie d Formulation 12/03/2006 Hep A, Unspecified formulation 12/03/2006,2004 Hep A, ped/adol, 2 dose 11/05/2004 Hep B, Unspecified Formulation 07/07/2001,2000,2000 Hep B, adolescent or pediatric 07/07/2001,2000,2000 IPV 11/05/2004, 2,02/03/2001,12/07 Influenza, split virus, quad rivalent, PF 05/28/2017,03/19/2016,03/08/2012,02/28,02/16/2007 Influenza, unspecified formulation 03/08,12/27/2010,02/27/2009,02/28,02/16/2007,06/15/2006,02/16/2004 MMR 11/05/2004,10/08/2001 Meningococcal B, OMV 07/19/2019,10/26/2017 Meningococcal Conjugate MCV4O 03/08/2012 Meningococcal Conjugate MCV4 P (Menactra) 10/26/2017 Meningococcus 03/08/2012 Pneumococcal Conjugate 7 Valent 04/05/2001,02/03,2000 Tdap 05/14/2023,03/08/2012 Varicella 12/27/2010,10/08/2001 Medical History Medical History Date Comments Asthma (CMD) Social History Tobacco Use Types Packs/Day Years Used Date Smoking Tobacco: Never Smokeless Tobacco: Never Tobacco Cessation:Counseling Given: No Alcohol Use Standard Drinks/Week Comments Yes 0 (1 standard drink = 0.6 oz pur e alcohol) social Utilities Answer Date Recorded In the past 12 months has th e electric, gas, oil, or water company threatened to shut off services in your home? No 11/18/2023 PHQ-2 Answer Date Recorded Initial depression screening score: 0 11/25/2023 Social Connections Answer Date Recorded How often do you see or talk to people that you care about and feel close to? (For example: talking to friends on the phone, visiting friends or family, going to caodaism or club meetings) 5 or more times a week 11/14/2023 Alcohol Use Answer Date Recorded Audit C Total Score 4 11/14/2023 Financial Resource Strain Answer Date R ecorded In the past year, have you o r any family members you live with been unable to get any of the following when it was really needed? Check all that apply. None 11/18/2023 Inadequate Housing Answer Date Recorded Social Determinants: Housing (Overall Score Help er) 0 11/25/2023 Food Insecurity Answer Date Recorded Within the past 12 months, y ou worried that your food would run out before you got money to buy more. Never true 11/18/2023 Within the past 12 months, t he food you bought just didn't last and you didn't have money to get more. Never true 11/18/2023 Inadequate Housing Answer Date Recorded What is your living situatio n today? I have a steady place to live 11/18/2023 Do you have problems with an y of the following? None of the above 11/18/2023 Exercise Vital Sign Answer Date Recorde d On average, how many days pe r week do you engage in moderate to strenuous exercise (like a brisk walk)? Patient declined On average, how many minutes do you engage in exercise at this level? Patient declined 11/18/2023 Interpersonal Safety Answer Date Record ed How often does anyone, nick piedra family and friends, physically hurt you? Never 11/14/2023 How often does anyone, nick piedra family and friends, insult or talk down to you? Never 11/14/2023 How often does anyone, nick piedra family and friends, threaten you with harm? Never 11/14/2023 How often does anyone, nick piedra family and friends, scream or curse at you? Rarely 11/14/2023 Transportation Needs Answer Date Record ed In the past 12 months, has l ack of reliable transportation kept you from medical appointments, meetings, work or from getting things needed for daily living? No 11/18/2023 Sexually Active Control Partners Comments Yes None Female Sex and Gender Information Value Date Recorded Sex Assigned at Not on file Gender Identity Not on file Sexual Orientation Not on file Job Start Date Occupation Industry Not on file Not on file Not on file Obstetrics History Last Filed Vital Signs Vital Sign Reading Time Taken Comments Blood Pressure 119/78 11/25/2023 10:37 AM CDT Pulse 90 11/25/2023 10:37 AM CDT Temperature 36.6 C (97.8 F) 11/25/2023 10:37 AM CDT Respiratory Rate 18 11/25/2023 10:3 7 AM CDT Oxygen Saturation 100% 11/25/2023 10: 37 AM CDT Inhaled Oxygen Concentration - - Weight 51.1 kg (112 lb 12.2 oz) 024 10:37 AM CDT Height 168.9 cm (5' 6.5 ) 11/25/2023 10 :37 AM CDT Body Mass Index 17.93 11/25/2023 10:37 AM CDT Plan of Treatment Health Maintenance Due Date Last Done Comments Pneumococcal Vaccine 0-49 (1 of 2 - PCV) 10/01/2019 04/05/2001, 02/03/2001, 2000 COVID-19 Vaccine (2 - 2023-2 5 season) 2024 05/30/2021 Influenza Vaccine (#1) 2024 8, 03/19/2016, 03/08/2012, Additional history exists Depression Screening 11/24/2024 11/25/2023 DTaP/Tdap/Td Vaccine (8 - Td or Tdap) 05/14/2033 05/14/2023, 03/08/2012, 11/05/2004, Additional history exists Hepatitis B Vaccine Completed 07/07/2001, 07/07/2001, 2000, Additional history exists Hepatitis A Vaccine Completed 12/03/2006, 12/03/2006, 11/05/2004, Additional history exists Varicella Vaccine Completed 12/27/2010, 10/08/2001 HPV Vaccine Completed 12/14/2015, 12/09, 12/26/2014, Additional history exists Meningococcal Vaccine Completed 10/26/2017 , 03/08/2012, 03/08/2012 Meningococcal Serogroup B Vaccine Completed 020, 10/26/2017 Advance Directives * Full Resuscitation (Latest Code Status on File) Date Activated Date Inactivated Comments 11/15/2023 6:43 AM 11/16/2023 6:28 PM Care Teams Container Packer Operator Relationship Specialty Start Date End Date Pcp Outside [facility], Unknown NO KNOWN ADDRESS ON FILE PCP - General 11/25/23
--- OUTSIDE RECORDS SUMMARY | 2024-07-01 07:26 | XMS_ITS | Referral Summary ---
Author Organization [facility] Address [address] [place] [address] Care Team Providers Care Tile Layer Helper Name Role Phone Pcp Outside [facility], Unknown Primary Care Provider U navailable [...] Overview (09/09/2019): Due to hypocalcemia- hosp at [facility] Due to hypocalcemia- hosp at [facility] Non-adherence to medical treatment 05/22/2016 Vitamin B12 [...] 7 Valent 04/05/2001,02/03,2000 Tdap 05/14/2023,03/08/2012 Varicella 12/27/2010,10/08/2001 Social History Tobacco Use Types Packs/Day Years Used Date Smoking Tobacco: Never Smokeless Tobacco: Never Tobacco Cessation:Counseling Given: No Alcohol Use Standard Drinks/Week Comments Yes 0 (1 standard drink = 0.6 oz pur e alcohol) social Utilities Answer Date Recorded In the past 12 months has [employer], gas, oil, or water [employer] threatened to shut off services in your home? No 11/18/2023 PHQ-2 Answer Date Recorded Initial depression screening score: 0 11/25/2023 Social Connections Answer Date Recorded How often do you see or talk to people that you care about and feel close to? (For example: talking to friends on the phone, visiting friends or family, going to faith or club meetings) 5 or more times [...] file Not on file Not on file Last Filed Vital Signs Vital Sign Reading [...] Mass Index 17.93 11/25/2023 10:37 AM CDT Functional Status Functional Status Response Date of Assess ment Do you have serious difficul ty walking or climbing stairs? No 11/16/2023 Do you have difficulty dressing or bathing? No 11/16/2023 Because of a physical, menta l, or emotional condition, do you have difficulty doing errands alone? No 11/14/2023 Cognitive Status Response Date of Assessm ent Because of a physical, menta l, or emotional condition, do you have serious difficulty concentrating, remembering or making decisions? No 11/14/2023 Plan of Treatment Not on file Advance Directives * Full Resuscitation (Latest Code Status on File) Date Activated Date Inactivated Comments 11/15/2023 6:43 AM 11/16/2023 6:28 PM Care Teams Tile Layer Helper Relationship Specialty Start Date End Date Pcp Outside [facility], Unknown NO KNOWN ADDRESS ON FILE PCP - General 11/25/23
--- OUTSIDE RECORDS SUMMARY | 2024-07-01 07:26 | XMS_ITS | Continuity of Care Document ---
Author Organization [facility] Address [address] [place] [address] Phone Care Team Providers Care Sports Medicine Specialist Name Role Phone Unavailable Unavailable Unavailable Allergies, [...] Diagnoses Date Provider Providers Copied on Encounter [facility], [address] [place] [address], [id number], tel:[phone] [facility] No Information 9 No Information [facility], [address] [place] [address], [id number], [place] tel:[phone] [facility] Blurry vision (chief complaint) Hypermetropia, bilateralSpasm of accommodation, bilateral 9 No Information [facility], [address] [place] [address], [id number], [place] tel:[phone] [facility] decreased vision (chief complaint) Hypermetropia 4 No Information Family History Family Member Type Diagnosis Age At Onset Maternal grandfather Problem (finding) Diabetes mellit us Payers Payer name Insurance type Covered alliance party ID Authoriza tiheena(s) Medicaid [facility] [id number] Social History Type Description Quantity Date Captured Comments Sex Male Smoking Status No Information Chief Complaint And Reason For Visit No Information Reason For Referral Reason For Referral No Information History Of Present Illness Encounter Date Complaint History Of Prese nt Illness Blurry vision The 17 year 10 m onth old male is being seen at [facility] for blurred vision without glasses OU, constant. [...] of decreased vision at distance. Seen at [facility]. The patient's mother noticed the symptom a few months ago, when the patient was unable to read the letters off a license plate. The symptom is constant and affects both eyes. The patient's mother has noticed he moves up closer to see the tv better. The patient has not been to the [facility] before, has never worn glasses, and the [...] Infor dayan Return in 5 months w betsey Carr T for Follow-up. Related to Hypermetropia, bilateral Impression/Plan [...] Hypermetropia, bilateral Related to Hyper metropia - Released new bifoc al sRX for FTW. Vision report card given to parent. RTC after wearing glasses for 2 months to monitor adaptation. Edu parent RX will likely need to be changed 6-12 months in the future.Congenital Anomalous retinal vasculature present OU. Monitor for changes. Related to Hypermetropia - Return in 1 year w Monty Leigh for Comprehensive Eye Exam Related to Hypermetropia - Return in 1 year w Monty Leigh for Comprehensive Eye Exam Related to Hypermetropia Assessments Type Assessment Date No Information Patient Care Teams Name Effective Dates (start - stop) Status Members No Information
--- OUTSIDE RECORDS SUMMARY | 2024-07-01 07:27 | XMS_ITS | Clinical Summary ---
Author Organization [facility] Address [address] [place] [address] Phone Care Team Providers Care Duplicate Maker Name Role Phone Alba Weller MD Primary Care Physician [phone] Conditions or Problems Problem Name Problem Code Onset Date Status Entry Date Provider Comment Standard Description Annotate URI [id number] (SNOMED CT) 06/10 Active 06/10 Marisabel Ortiz DO Upper respiratory infection SCREENING FOR IRON DEFICIENCY ANEMIA 032134047 (SNOMED CT) Resolved Drea Powers MD Anemia screening Screening for iron deficiency anemia 621793668 (SNOMED CT) 12/15 Resolved 12/15 Drea Powers MD Anemia screening Gastroenter itis 03078319 (SNOMED CT) 11/20 Resolved 11/20 Drea Powers MD Gastroenteriti s WHEEZING 29325107 (SNOMED CT) 01/12 Resolved 01/12 Drea Powers MD Wheezing Gastroenter itis 53553657 (SNOMED CT) 11/20 Removed 11/20 Keturah Lacey MD Gastroenteriti s GASTROENTER ITIS, VIRAL 002624180 (SNOMED CT) 01/12 Inactive 01/12 Kerri Mosqueda MD Viral gastroenteriti s WHEEZING 26359841 (SNOMED CT) 01/12 Removed 01/12 Kerri Mosqueda MD Wheezing OTHER SPEECH DISTURBANCE 08951972 (SNOMED CT) Resolved Kerri Mosqueda MD Disturbance in speech ANEMIA, MACROCYTIC 93918943 (SNOMED CT) 01/12 Resolved 01/12 Kerri Mosqueda MD Macrocytic anemia URI 15715815 (SNOMED CT) 05/11 Resolved 05/11 Kerri Mosqueda MD Upper respiratory infection Screening for iron deficiency anemia 831172248 (SNOMED CT) 12/15 Removed 12/15 Kerri Mosqueda MD Anemia screening Family History of HEREDITARY HEMORRHAGIC TELANGIECTA HUGH 09886402 (SNOMED CT) 05/11 Active 05/11 Kerri Mosqueda MD 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 24568669 (SNOMED CT) 05/11 Removed 05/11 Kerri Mosqueda MD Upper respiratory infection ANEMIA, MACROCYTIC 08663052 (SNOMED CT) 01/12 Removed 01/12 Kerri Mosqueda MD Macrocytic anemia ANEMIA 536067768 (SNOMED CT) 01/12 Correctio n 01/12 Kerri Mosqueda MD Anemia SHORT STATURE 053335281 (SNOMED CT) 01/12 Active 01/12 Kerri Mosqueda MD Short stature disorder OTHER SPEECH DISTURBANCE 00328130 (SNOMED CT) Removed Kerri Mosqueda MD Disturbance in speech SCREENING FOR IRON DEFICIENCY ANEMIA 375553441 (SNOMED CT) Removed Kerri Mosqueda MD Anemia screening History of ANEMIA, IRON DEFICIENCY NOS 27652352 (SNOMED CT) 11/05 Correctio n 09/11 Kerri Mosqueda MD Iron deficiency anemia took iron for 1 mos TINEA CAPITIS 9488469 (SNOMED CT) 09/20 Resolved 09/20 Kerri Mosqueda MD Tinea capitis PERSONAL HISTORY OF ALLERGY TO OTHER FOODS 054399974 (SNOMED CT) 12/27 Active 12/27 Kerri Mosqueda MD H/O: food allergy TINEA CAPITIS 1881934 (SNOMED CT) 09/20 Removed 09/20 Drea Powers MD Tinea capitis Rule out TINEA CAPITIS 6768221 (SNOMED CT) 09/20 Correctio n 09/20 Drea Powers MD Tinea capitis ALLERGIC RHINITIS 73108309 (SNOMED CT) Active Kerri Mosqueda MD Allergic rhinitis URI 13261897 (SNOMED CT) 08/09 Resolved 08/09 Kerri Mosqueda MD Upper respiratory infection URI 76540667 (SNOMED CT) 08/09 Removed 08/09 Kerri Mosqueda MD Upper respiratory infection URI 09760293 (SNOMED CT) 06/10 Resolved 06/10 Kerri Mosqueda MD Upper respiratory infection ASTHMA, WITH ACUTE EXACERBATIO N 872788770 (SNOMED CT) Inactive Kerri Mosqueda MD Acute asthma ASTHMA, WITH ACUTE EXACERBATIO N 432719471 (SNOMED CT) Correctio n Kerri Mosqueda MD Acute asthma WELL CHILD EXAMINATION 737980737 (SNOMED CT) 12/03 Active 12/03 Kerri Mosqueda MD Well child visit URI 76629287 (SNOMED CT) 06/10 Removed 06/10 Drea Powers MD Upper respiratory infection Hospitalize d for ASTHMA 988884468 (SNOMED CT) 09/11 Active 09/11 Drea Powers MD Asthma history of ICU admission History of ANEMIA, IRON DEFICIENCY NOS 92940662 (SNOMED CT) 11/05 Removed 09/11 Drea Powers MD Iron deficiency anemia took iron for 1 mos ECZEMA 04481503 (SNOMED CT) 05/22 Active 09/11 Drea Powers MD Eczema ASTHMA 010594183 (SNOMED CT) 11/24 Active 09/11 Drea Powers MD Asthma Medications Medication Instructions Start Date Stop Date Generic Name NDC Provider FLOVENT HFA 110 MCG/ACT INHALATION AEROSOL 2puffs Twice a Day then gargle mouth after each use FLUTICASONE PROPIONATE HFA 77719318979 Drea Powers MD QVAR 80 MCG/ACT INHALATION AEROSOL SOLUTION 2 puffs Twice a Day everyday 01/01 BECLOMETHASONE DIPROPIONATE 13220373437 Drea Powers MD MONTELUKAST SODIUM 5 MG CHEW 1 tablet By Mouth Every Day MONTELUKAST SODIUM 20112518653 Drea Powers MD SINGULAIR 5 MG CHEW one tab at night 12/26 MONTELUKAST SODIUM 01501235817 Drea Powers MD ZOFRAN ODT 4 MG ORAL TABLET DISINTEGRATING 1 By Mouth Every 8hr As Needed nausea or vomiting 05/21 ONDANSETRON 75941339744 Chanda Cordero FORENSIC SPECIALIST SINGULAIR 5 MG CHEW one tab at night MONTELUKAST SODIUM 45620429714 Chanda Cordero APN PREDNISONE 10 MG TABS 3 pills By Mouth Twice a Day x 3 days 01/15 PREDNISONE 21596302008 Kerri ZAMORA ODT 4 MG ORAL TABLET DISINTEGRATING 1 By Mouth Every 8hr As Needed nausea or vomiting ONDANSETRON 46136864137 Kerri Mosqueda MD QVAR 80 MCG/ACT INHALATION AEROSOL SOLUTION 2 puffs Twice a Day everyday BECLOMETHASONE DIPROPIONATE 35770043584 Drea Powers MD EPIPEN 2-MATILDA 0.3 MG/0.3ML SOAJ EPINEPHRINE 54111229171 Kerri Mosqueda MD [facility] IRON 325 (65 Fe) MG TABS 1 By Mouth once a Day x 1 month. take with orange juice. 12/15 FERROUS SULFATE 32071250182 Kerri Mosqueda MD VITAMIN B-6 25 MG TABS 1 By Mouth Every Day x 2 months 05/11 PYRIDOXINE HCL 53703354392 Kerri Mosqueda MD PYRIDOXINE HCL 25 MG TABS 1 By Mouth Every Day x 3 weeks PYRIDOXINE HCL 05653977444 Kerri Mosqueda MD [facility] IRON 325 (65 Fe) MG TABS 1 By Mouth once a Day x 1 month. take with orange juice. FERROUS SULFATE 11208238186 Kerri Mosqueda MD TRIAMCINOLONE ACETONIDE 0.025 % OINT apply to body Twice a Day As Needed rash or itch. do not use on face. TRIAMCINOLONE ACETONIDE 09894004566 Kerri Mosqueda MD CLARITIN 5 MG/5ML ORAL SYRUP 2 tsp By Mouth Every Day As Needed allergy symptoms LORATADINE 02532264422 Kerri Mosqueda MD OPTICHAMBER ADVANTAGE as directed with metered dose inhaler SPACER/AERO-HOLD ING CHAMBERS 14533179675 Kerri Mosqueda MD VENTOLIN HFA 108 (90 Base) MCG/ACT AERS 2 puffs Every 4-6 h As Needed cough or wheeze or 20-30 mins prior to exercise as needed. this is your rescue medicine. ALBUTEROL SULFATE 24198073525 Kerri Mosqueda MD FLOVENT HFA 44 MCG/ACT INHALATION AEROSOL 2 puffs Twice a Day everyday. this is your controller medicine. FLUTICASONE PROPIONATE HFA 52922440598 Kerri Mosqueda MD PROAIR HFA 108 (90 Base) MCG/ACT INHALATION AEROSOL SOLUTION 2 puffs Every Four-6 hrs As Needed ALBUTEROL SULFATE 31440799000 Kerri Mosqueda MD EPIPEN JR 2-MATILDA 0.15 MG/0.3ML SOAJ as directed As Needed allergic reaction. if epi-pen is used, go to emergency room immediately. EPINEPHRINE 12568123311 Kerri Mosqueda MD LY-PEG 250 MG ORAL TABLET 1 tablet By Mouth Every Day with fatty food 12/27 GRISEOFULVIN ULTRAMICROSIZE 68411999847 Kerri Mosqueda MD NIZORAL 2 % EXTERNAL SHAMPOO apply to scalp 2-3x per week 12/27 KETOCONAZOLE 98632727149 Kerri Mosqueda MD PREDNISONE 20 MG TABS 1 tablet By Mouth Every Day for 4days 12/27 PREDNISONE 01652635489 Kerri Mosqueda MD IBUPROFEN 100 MG/5ML SUSP 2 tsp By Mouth q6h As Needed fever or pain 12/27 IBUPROFEN 91528850809 Kerri Mosqueda MD DONATUSSIN DM 30-15-150 MG/5ML SYRP 1 tsp By Mouth q6h As Needed cough 12/27 PSEUDOEPHEDRINE- DM-GG 23667594308 Kerri Mosqueda MD SINGULAIR 5 MG CHEW 1 tablet daily 12/27 MONTELUKAST SODIUM 99425560688 Kerri Mosqueda MD LY-PEG 250 MG ORAL TABLET 1 tablet By Mouth Every Day with fatty food GRISEOFULVIN ULTRAMICROSIZE 55017121758 Drea Powers MD NIZORAL 2 % EXTERNAL SHAMPOO apply to scalp 2-3x per week KETOCONAZOLE 91176102204 Drea Powers MD XOPENEX HFA 45 MCG/ACT AERO 2puffs every 4-6hours as needed with MDI 09/20 LEVALBUTEROL TARTRATE 85445394692 Drea Powers MD PROTOPIC 0.1 % EXTERNAL OINTMENT apply to affected area Every Day 09/20 TACROLIMUS 33986621121 Drea Powers MD PREDNISONE 20 MG TABS 1 tablet By Mouth Every Day for 4days PREDNISONE 11428570176 Drea Powers MD PRELONE 15 MG/5ML SYRP 1.5 teaspoons 1 time per day for 4 days 09/20 PREDNISOLONE 45639500515 Drea Powers MD VENTOLIN HFA 108 (90 Base) MCG/ACT AERS 2 puffs Every 4-6 h As Needed cough or wheeze or 20-30 mins prior to exercise as needed. this is your rescue medicine. ALBUTEROL SULFATE 73180605237 Kerri Mosqueda MD ALBUTEROL SULFATE (2.5 MG/3ML) 0.083% NEBU 1 vial via nebulizer Every Four-6h As Needed cough or wheeze ALBUTEROL SULFATE 13759616873 Kerri Mosqueda MD IBUPROFEN 100 MG/5ML SUSP 2 tsp By Mouth q6h As Needed fever or pain IBUPROFEN 08045379038 Kerri Mosqueda MD DONATUSSIN DM 30-15-150 MG/5ML SYRP 1 tsp By Mouth q6h As Needed cough PSEUDOEPHEDRINE- DM-GG 24566005406 Kerri Mosqueda MD XOPENEX 0.63 MG/3ML INHALATION NEBULIZATION SOLUTION 1 vial in nebulizer every 4 to 6 hours as needed for wheeze and cough 07/22 LEVALBUTEROL HCL 33085541803 Maisha Rosen MD PRELONE 15 MG/5ML SYRP 1.5 teaspoons 1 time per day for 4 days PREDNISOLONE 54448264251 Maisha Rosen MD CLARITIN 5 MG/5ML ORAL SYRUP 2 tsp By Mouth Every Day As Needed allergy symptoms LORATADINE 09914016526 Kerri Mosqueda MD ORAPRED 15 MG/5ML ORAL SOLUTION 1 and 1/2 tsp By Mouth Twice a Day x 5 days 0/07 PREDNISOLONE SODIUM PHOSPHATE 14722329467 Kerri Mosqueda MD XOPENEX HFA 45 MCG/ACT AERO 2 puffs Every Four-6h As Needed cough or wheeze and 20 minutes before physical activity LEVALBUTEROL TARTRATE 62412038477 Maisha Rosen MD ALBUTEROL SULFATE (2.5 MG/3ML) 0.083% NEBU 1 vial via nebulizer q4h x 24h, q6h x 24h then Every Four-6h As Needed cough or wheeze ALBUTEROL SULFATE 85076517767 Munira Santos MD FLOVENT 110 MCG/ACT AERO 2 puffs bid with aerochamber. This is your controller medicine FLUTICASONE PROPIONATE (INHAL) 40146231308 Kerri Mosqueda MD TRIAMCINOLONE ACETONIDE 0.1 % OINT apply top Twice a Day As Needed rash or itch TRIAMCINOLONE ACETONIDE 45413154649 Kerri Mosqueda MD PROTOPIC 0.1 % EXTERNAL OINTMENT apply to affected area Every Day TACROLIMUS 64982084870 Kerri Mosqueda MD ORAPRED 15 MG/5ML ORAL SOLUTION 1 and 1/2 tsp By Mouth Every Day for 4day PREDNISOLONE SODIUM PHOSPHATE 70186436449 Drea Powers MD XOPENEX HFA 45 MCG/ACT AERO 2puffs every 4-6hours as needed with MDI LEVALBUTEROL TARTRATE 19492567014 Drea Powers MD SINGULAIR 5 MG CHEW 1 tablet daily MONTELUKAST SODIUM 87177417074 Patricia Cho MD ORAPRED 15 MG/5ML ORAL SOLUTION 1 tsp po bid for 4 days 0/05 PREDNISOLONE SODIUM PHOSPHATE 02641086364 Drea Powers MD ALBUTEROL 90 MCG/ACT AERS 2 puffs q 4-6hr prn for cough, sob, wheezing ALBUTEROL 80547143183 Kerir Mosqueda MD ALBUTEROL SULFATE (2.5 MG/3ML) 0.083% NEBU per neb q4-6 hr prn for cough, sob, wheezing ALBUTEROL SULFATE 54836248785 Kerri Mosqueda MD FLOVENT 110 MCG/ACT AERO 2 puffs bid with acm daily FLUTICASONE PROPIONATE (INHAL) 27574123411 Kerri Mosqueda MD Medications Administered No information available. Allergies, Adverse Reactions, Alerts Allergy Name Reaction Description Start Date Severity Statu s Provider FISH Critical Active Emanuel Mosqueda MD EGGS Critical Active Emanuel Mosqueda MD SHELLFISH Critical No Longer Active Kerri Mosqueda MD NUTS Critical Active Emanuel Mosqueda MD SHELLFISH Critical No Longer Active Drea Powers MD LACTOSE Critical Active Drea Israel MD Results Date Name Value Unit Range Flag Description Preload: Preload LEAD, BLOOD 5 ug/dL Lead [Mas s/volume] in Capillary blood Office Visit: Well Child Vis it: 6 year old HGB POC 13.1 g/dL hemoglobin, b lood, quantitative, point of care Lab Report: CBC With Differe ntial/Platelet, Comp. Metabolic Panel (14), ... FERRITIN 182 ng/mL 16-124 H Ferritin [Mass/volume] in Serum or Plasma CHOLESTEROL 126 mg/dL 100-169 Cholester ol [Mass/volume] in Serum or Plasma - mg/dL TSH 4.020 u[iU]/mL 0.450-4.50 0 Thyrotropin [Units/volume] in Serum or Plasma T4, FREE 1.12 ng/dL 0.93-1.60 Thyroxine (T4) free [Mass/volume] in Serum or Plasma IRON SATUR % 63 % 15-55 H Iron sat uration [Mass Fraction] in Serum or Plasma IRON 154 ug/dL 40-155 Iron [Mass/vo lume] in Serum or Plasma UIBC 89 ug/dL 150-375 L Iron binding capacity.unsaturated [Mass/volume] in Serum or Plasma TIBC 243 ug/dL 250-450 L Iron binding capacity [Mass/volume] in Serum or Plasma SGPT (ALT) 13 U/L 0-30 Alanine aminotransferase [Enzymatic activity/volume] in Serum or Plasma SGOT (AST) 22 U/L 0-40 Aspartate aminotransferase [Enzymatic activity/volume] in Serum or Plasma ALK PHOS 159 U/L 134-349 Alkaline ollie sphatase [Enzymatic activity/volume] in Blood BILI TOTAL 1.0 mg/dL 0.0-1.2 Bilirubin. total [Mass/volume] in Serum or Plasma A/G RATIO 1.4 1.1-2.5 Albumin/Alannah bulin [Mass Ratio] in Serum or Plasma GLOBULIN 2.4 1.5-4.5 Globulin [Mass/volume] in Serum ALBUMIN 3.3 g/dL 3.5-5.5 L Albumin [Mass /volume] in Serum or Plasma PROTEIN, TOT 5.7 g/dL 6.0-8.5 L Protein [Mass/volume] in Serum or Plasma CALCIUM 8.6 mg/dL 8.9-10.4 L Calcium [Moles/volume] in Serum or Plasma CO2 22 mmol/L 17-26 Carbon dioxid e, total [Moles/volume] in Venous blood CHLORIDE 106 mmol/L 97-108 Chloride [Moles/volume] in Serum or Plasma POTASSIUM 4.3 mmol/L 3.5-5.2 Potassium [Moles/volume] in Serum or Plasma SODIUM 141 mmol/L 134-144 Sodium [Moles /volume] in Serum or Plasma BUN/CREAT 8 9-27 L Urea nitrogen/Creatinine [Mass Ratio] in Serum or Plasma CREATININE 0.60 mg/dL 0.42-0.75 Creatini ne [Mass/volume] in Serum or Plasma BUN 5 mg/dL 5-18 Urea nitrogen [Mass/volume] in Serum or Plasma BG RANDOM 70 mg/dL 65-99 Glucose [Ma ss/volume] in Blood IMM GRANU % 0 % 0-2 Immature granulocytes/100 leukocytes in Blood BASO# 0.0 x10E3/uL 0.0-0.3 Basophils [#/vol ume] in Blood EOS ABSLT 1.0 X10E3/UL 10*3/uL 0.0-0.4 H Eosinophils [#/volume] in Blood MONOSCT AUTO 0.4 X10E3/UL 10*3/uL 0.1-0.7 Monocytes [#/vol ume] in Blood by Automated count LYMPHCT AUTO 3.5 X10E3/UL 10*3/mm3 1.1-3.1 H Lymphocytes [#/volume] in Blood by Automated count ABS NEUTROPH 2.8 X10E3/UL 10*3/uL 1.5-5.6 Neutrophils [#/volume] in Blood BASOPHIL % 0 % 0-2 Basophils/ 100 leukocytes in Blood by Manual count % EOS AUTO 12 % 0-4 H Eosinophil s/100 leukocytes in Blood by Automated count MONOCYTE % 6 % 3-10 Monocytes/ 100 leukocytes in Blood by Automated count LYMPHS % 46 % 20-47 Lymphocytes/ 100 leukocytes in Blood by Automated count PMN % 36 % 40-70 L Neutrophils/1 00 leukocytes in Blood by Automated count PLATELETS 400 X10E3/UL 10*3/mm3 150-349 H Platelets [#/vol ume] in Blood by Automated count RDW 19.0 % 12.3-15.1 H Erythrocyte distribution width [Ratio] by Automated count MCHC 33.7 G/DL 31.7-36.0 MCHC [Mass/ volume] by Automated count MCH 36.7 pg 25.7-31.5 H MCH [Entiti c mass] by Automated count MCV 109 fL 77-91 H MCV [Entitic volume] by Automated count HCT 30.0 % 34.8-45.8 L Hematocrit [Volume Fraction] of Blood by Automated count RBC 2.75 X10E6/UL 10*6/mm3 3.91-5.45 L Erythrocytes [#/volume] in Blood by Automated count WBC 7.8 X10E3/UL 10*3/mm3 4.0-9.1 Leukocytes [#/vo lume] in Blood by Automated count Office Visit: Adolescent Phy sical Exam: 13yo HGB 13.0 g/dL Hemoglobin [Mass/volume] in Blood Plan of Care Type Date Detail Referral Other Jud Brewster, [address] [place], [address] + Referral Radiology Jud Brewster, [address] [place], [address] + Referral Radiology Jud Brewster, [address] [place], [address] + Referral Other Jud Brewster, [address] [place], [address] Referral Other [facility], [address] [place], [address] Referral Radiology [facility], [address] [place], [address] Referral ENT/Audiology [facility] Do Not use [facility], [facility] [place], [address] Referral ENT/Audiology [facility] Do Not use [facility], [facility] [place], [address] Referral excluded fr om report: Pending order Pulse Ox Pending order Hemoglobin (fing erstick) Pending order Hemoglobin (fing erstick) Pending order Hemoglobin (fing erstick) Pending order CBC W Diff/Plate let Pending order Iron & TIBC Pending order Ferritin Pending order T4 Free Pending order TSH Pending order CMP Pending order Cholesterol Pending order Hemoglobin (fing erstick) Pending order Fungus Cx Pending Order exclud ed from report: Pending order Hemoglobin (fing erstick) Pending order Hemoglobin Procedures Code Procedure Name Date Entry Date ref.a Other CPT-93660 Gardasil ref.a Radiology CPT-43087 Pulse Ox J7619 Alubuterol nebulizer ref.a Radiology CPT-79836 Hemoglobin (fingerstick) 201 08/16/06 CPT-32179 Hemoglobin (fingerstick) 201 00 CPT-49581 Hemoglobin (fingerstick) 201 07/18/03 CPT-17971 CBC W Diff/Platelet CPT-05646,84833 Iron & TIBC CPT-62311 Ferritin CPT-53541 T4 Free CPT-85229 TSH CPT-93903 CMP CPT-54588 Cholesterol ref.a Other ref.a Radiology ref.a Other CPT-48425 Gardasil CPT-76219 Menactra (MCV4) CPT-61359 Influenza vaccine IM CPT-01360 TdaP CPT-62347 Gardasil CPT-46842 Influenza vaccine IM CPT-21363 Varicella 32645 Medication/Injection Adminstration 12/27 33633 Hemoglobin (fingerstick) 201 05/18/18 39543 Pulse Ox 4605 Fungus Cx J7619 Alubuterol nebulizer 0098 Prednisone 20mg CPT-36363 [place] [address] Medication/Injection Adminstration 66155 Hemoglobin (fingerstick) 200 12/18/20 CPT-300[place] [address] Medication/Injection Adminstration 8.2 Med Refill Prescription 2007 CPT-500[place] [address] Medication/Injection Adminstration J7619 Alubuterol nebulizer 08479 [place] [address] [place] A [address] Medication/Injection Adminstration 12/03 92875 Hemoglobin CPT-43[place] [address] Medication/Injection Adminstration 06/15 Vital Signs Date Name Value Unit Description BMI (Body Mass Index) 16.33 kg/m2 Bod y Mass Index (Ratio) Body Temperature 97.0 [degF] temperat ure E&M BP Diastolic 72 mm[Hg] blood pressu re, diastolic BP Systolic 100 mm[Hg] blood pressur e, systolic BSA (Body Surface Area) 1.12 b lalo surface area Heart Rate 68 /min pulse rate Height 55 [in_us] height E&M Height 139.70 cm height in cent imeters E&M Respiratory Rate 12 /min respirat ory rate E&M Weight Measured 70 [lb_av] weight E& M Weight Measured 31.82 kg weight in kilograms E&M Body Temperature 36.33 Leni temperat ure in centigrade E&M Head Circumference 113.03 cm head c ircumference in centimeters Head Circumference 44.5 [in_us] head c ircumference Immunizations Vaccine Administration Date Standard Description CVX Co de Dose gardasil 137 0.5 mL gardasil3 137 Unknown Not given: Reason: v accine availability gardasil3 137 0.5 mL hpv #2 137 0.5 mL hpv #2 drug 137 0.5 mL hpv #3 137 0.5 mL hpv #3 drug 137 0.5 mL hpv #1 drug 137 0.5 mL mmr #1 03 Unknown mmr #2 03 Unknown ipv #1 10 Unknown ipv #2 10 Unknown ipv #3 10 Unknown ipv #4 10 Unknown heminfb#1 17 Unknown heminfb#2 17 Unknown heminfb#3 17 Unknown heminfb#3 17 Unknown dtap #1 20 Unknown dtap #2 20 Unknown dtap #4 20 Unknown dtap #3 20 Unknown dtap #5 20 Unknown varicella#1 21 Unknown varicella#2 21 0.5 mL hepbvax#1 45 Unknown hepbvax#2 45 Unknown hepbvax#3 45 Unknown hepavax #1 85 Unknown hepavax #2 85 0.5 ml flu vax 88 Unknown flu vax 88 Unknown flu vax 88 Unknown flu vax 88 0.5 ml flu vax 88 0.5 ml flu vax 88 0.5 mL flu vax #2 88 0.5 mL pcv7 #1 100 Unknown pcv7 #2 100 Unknown pcv7 #3 100 Unknown mcv4 108 0.5 mL tdap 115 0.5 mL Advance Directives No information available.
[2024-07-01] MEDS: PIPERACILLIN/TAZ 4.5G/NS 100ML 4.5 GM/100 ML BAG IVPB (07:32)
--- NOTE | 2024-07-01 07:35 | PC.NURSE ---
Pt received a total of 2L of NS
[2024-07-01 07:37] LABS: INR 2.5
[2024-07-01 07:38] LABS: Partial Thromboplastin Time 42.5 Seconds (22.3-36.8)
[2024-07-01 07:38] LABS: Immature Reticulocyte Fraction 24.7 % (3.0-15.9); Reticulocyte Hemoglobin Conten 40.4 pg (28.2-36.6); Reticulocyte Percent 4.03 % (0.7-4.3); Reticulocytes Absolute 0.05 10^6/uL (0.02-0.10)
--- NOTE | 2024-07-01 07:41 | PC.NURSE ---
Pt to CT on monitor at this time
[2024-07-01 07:54] LABS: Iron 34 ug/dL (49-181)
[2024-07-01 08:04] LABS: Percent Iron Saturation 34 % (20-50)
[2024-07-01 08:11] LABS: Lactate Dehydrogenase 939 U/L (120-246)
[2024-07-01] MEDS: VANCOMYCIN 1,500 MG/NS 500 ML 1,500 MG/500 ML BAG 250 MG IVPB (08:15)
[2024-07-01 08:57] LABS: MRSA (PCR) NOT DETECTED (NOT DETECTE)
[2024-07-01 09:06] LABS: Folic Acid 4.9 ng/mL (2.76->20); Vitamin B12 < 159.0 pg/mL (239-931)
--- NOTE | 2024-07-01 09:11 | PC.NURSE ---
RN attempted straight catheter, no urinary output. EDP aware
[2024-07-01] MEDS: methylPREDNISolone SOD SUCC 125 MG VIAL IV PUSH (09:41)
[2024-07-01 09:48] LABS: Reflex Lactic Acid Yes or No Add Lactic
[2024-07-01] MEDS: SODIUM CHLORIDE 0.9% IV 250 ML 30 ML IV CONT (10:49)
[2024-07-01 10:53] LABS: Lactic Acid 4.7 mmol/L (0.7-2.0)
[2024-07-01] MEDS: CYANOCOBALAMIN INJ 1,000 MCG/ML VIAL 1000 MCG IM (10:55)
[2024-07-01] MEDS: TUBING, BLOOD SET 1 EACH XX (10:56)
[2024-07-01 11:09] LABS: Add Urine Microscopic? YES; Appearance Urine Clear (Clear); Bacteria Urine None Seen /hpf; Bilirubin Urine Negative (Negative); Blood Urine 2+ (Negative); Color Urine Yellow (Yellow); Glucose Urine UA Negative (Negative); Hyaline Casts Urine Present /lpf; Ketones Urine Negative (Negative); Leukocyte Esterase Ur 1+ LEU/UL (Negative); Need Manual Microscopic Reviewed; Nitrate Urine Positive (Negative); Protein Urine Trace mg/dL (Negative); Specific Grav Ur 1.042 (1.001-1.035); Squamous Epithelial Cell Urine None Seen /hpf (Few); WBC Urine 0-5 /hpf (0-3); pH Urine 7.5 (5.0-9.0)
[2024-07-01] MEDS: ALBUMIN HUMAN 25% 25 GM/100 ML 100 ML IVPB (11:59)
== END 2024-07-01 13:06 | disposition short-term general hospital (02) ==
PROVIDERS: Emergency Medicine; Emergency Provider Emergency Medicine
DX: J18.9 Pneumonia, unspecified organism (principal); J96.90 Respiratory failure, unspecified, unspecified whether with hypoxia or hypercapnia; E53.8 Deficiency of other specified B group vitamins; E83.51 Hypocalcemia; Z20.822 Contact with and (suspected) exposure to COVID-19; J45.909 Unspecified asthma, uncomplicated; R00.0 Tachycardia, unspecified; I44.0 Atrioventricular block, first degree
CPT/HCPCS: 36415; 36430; 71045; 71275; 76700; 80053; 81001; 82607; 82728; 82746; 82948; 83540; 83550; 83605; 83615; 83690; 83735; 83880; 84443; 84484; 85025; 85046; 85610; 85730; 86850; 86880; 86900; 86901; 86923; 87040; 87086; 87637; 87641; 93005; 96365; 96366; 96367; 96368; 96372; 96375; 99291; J0612; J2543; J2919; J3370; J3420; J7030; J7050; P9016; P9047; Q9967

== ENCOUNTER 2025-01-20 17:05 | Emergency (ER) | payer OTHER, SELFPAY ==
--- OUTSIDE RECORDS SUMMARY | 2019-01-24 08:11 | XMS_ITS | Continuity of Care Document ---
Author Organization [facility] Address [address] [place] [address] Phone Care Team Providers Care It Application Development Manager Name Role Phone Unavailable Unavailable Unavailable Allergies, Adverse Reactions, Alerts Substance Reaction Status Criticality No Known Allergies Active No Inform ation Medications Medication Instructions Dosage Effective Dates (start - stop) Status Comments ALBUTEROL SULFATE HFA (unknown strength) Not Available - Active Procedures Procedure Date REFRACTION EYE EXAM NEW PATIENT COMP REFRACTION EYE EXAM, NEW PATIENT COMP Advance Directives Directive Yes / No Effective Date File Name No Information Encounters Encounter Description Practice Location Reason(s) For Visit Diagnoses Date Provider Providers Copied on Encounter [facility], [address] [place] [address], [id number], tel:[phone] [facility] No Information 9 No Information [facility], [address] [place] [address], [id number], [place] tel:[phone] [facility] Blurry vision (chief complaint) Hypermetropia, bilateralSpasm of accommodation, bilateral 9 No Information [facility], [address] [place] [address], [id number], [place] tel:[phone] [facility] decreased vision (chief complaint) Hypermetropia 4 No Information Family History Family Member Type Diagnosis Age At Onset Maternal grandfather Problem (finding) Diabetes mellit us Payers Payer name Insurance type Covered green party ID Authoriza tiheena(s) Medicaid [facility] [id number] Social History Type Description Quantity Date Captured Comments Sex Male Smoking Status No Information Chief Complaint And Reason For Visit No Information Reason For Referral Reason For Referral No Information History Of Present Illness Encounter Date Complaint History Of Prese nt Illness Blurry vision The 17 year 10 m onth old male is being seen at [facility] for blurred vision without glasses OU, constant. Happy with vision with current glasses from one year ago at distance and near. Notices that it requires a little more effort to see clearly from near to distance.Is in 12th grade and reports doing well in school and no trouble reading with no IEP. Denies any ocular complaints. STANLEY: 1 year ago, stable decreased vision The 13 year 3 m onth old male presents for evaluation of decreased vision at distance. Seen at [facility]. The patient's mother noticed the symptom a few months ago, when the patient was unable to read the letters off a license plate. The symptom is constant and affects both eyes. The patient's mother has noticed he moves up closer to see the tv better. The patient has not been to the [facility] before, has never worn glasses, and the patient is in the 8th grade. Patient or patient's mother did not report any trouble with near work (headaches or eyestrain). Mother reports patient gets straigh tA's, but is slow at completing written work.STANLEY: 8 years ago?no glasssesLME: December 2013Unremarkable Functional Status Date Functional Assessmen t No Information Instructions Date Instruction Additional Infor dayan Return in 5 months w Venessa Barron for Follow-up. 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 Explained that the bifocal will help to relax focusing system at near to help his vision at distance. Patient to return to clinic in 2-3 months to assess vision with new SRx. Patient and mother expressed understanding. Related to Spasm of accommodation, bilateral Impression/Plan - Ed ucated patient and mother on findings. Released bifocal SRx for FTW. Educational materials provided: Vision Report Card. 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 Vision report card given to parent. RTC after wearing glasses for 2 months to monitor adaptation. Edu parent RX will likely need to be changed 6-12 months in the future.Congenital Anomalous retinal vasculature present OU. Monitor for changes. Related to Hypermetropia Assessments Type Assessment Date No Information Patient Care Teams Name Effective Dates (start - stop) Status Members No Information
[2025-01-20 17:01] VITALS: BP 110/70; PULSE 114; RESP 22; TEMP 36.5; O2SAT 97
[2025-01-20 17:18] VITALS: O2SAT 98
[2025-01-20 17:20] VITALS: BP 110/70; PULSE 114; RESP 19; TEMP 36.5; O2SAT 98
--- OUTSIDE RECORDS SUMMARY | 2025-01-20 17:34 | XMS_ITS | Clinical Summary ---
Author Organization [facility] Address [address] [place] [address] Care Team Providers Care Dat Instructor Name Role Phone Pcp Outside [facility], Unknown Primary Care Provider U navailable Allergies Active Allergy Reactions Criticality Noted Date Comments Eggs Or Egg-Derived Products (Food Or Med) Other (See Comments) High 12/15/2013 Fish (Food Or Med) Other (See Comments) High 014 Lactose (Food Or Med) Other (See Comments) High 05/13 Milk (Food Or Med) RASH 11/14/2023 Nuts (Food) Other (See Comments) High 02/29/2008 Medications Calcium Carbonate 500 MG Chew Tab Chew 4 tablets by mouth 3 times daily. 360 tablet 3 0 Active calcitRIOL (ROCALTROL) 0.25 MCG capsule Take 1 capsule by mouth 2 times daily. 60 capsule 3 0 Active HYDROcodone-acet aminophen (NORCO) 5-325 MG per tabletIndication s:Closed fracture of pubic ramus, unspecified laterality, initial encounter (CMD) Take 1 tablet by mouth every 4 hours as needed for Pain. 20 tablet 4 Active Additional Information Patient not taking.Reported on 11/25/2023 albuterol 108 (90 Base) MCG/ACT inhalerIndicatio ns:Mild intermittent asthma without complication (CMD) Inhale 2 puffs into the lungs every 4 hours as needed for Wheezing or Shortness of Breath. As needed for SOB 18 each 4 Active Active Problems Problem Noted Date Diagnosed [...] uncomplicated (CMD) 08/09 Osler hemorrhagic telangiectasia syndrome 2012 Short stature 01/12/2013 Allergy to other foods 12/27/2010 Allergic rhinitis 02/29/2008 Acute upper respiratory infection 06/10/2006 Asthma (CMD) 11/24/2001 Eczema 03/22/2001 Immunizations Immunization Administration Dates Next Due DTaP 11/05/2004, 2,04/05/2001,02/03,2000 [...] = 0.6 oz pur e alcohol) social [employer] Answer Date Recorded In the past [...] phone, visiting friends or family, going to gnosticism or club meetings) 5 or more times [...] Recorded Sex Assigned at Not on file Legal Sex Male 1:07 PM CDT Gender Identity Not on file Sexual Orientation Not on file Occupation Industry Job Start Date Job End Date Student Not on file Not on file Not [...] 10:37 AM CDT Height 168.9 cm (5' 6.5) 11/25/2023 10 :37 AM CDT Body Mass Index 17.93 11/25/2023 10:37 AM CDT Plan of Treatment Health Maintenance Due Date Last Done Comments Pneumococcal Vaccine 0-49 (1 of 2 - PCV) 10/01/2019 04/05/2001, 02/03/2001, 2000 Depression Screening 11/24/2024 11/25/2023 COVID-19 Vaccine (2 - 2024-2 6 season) 2025 05/30/2021 Influenza Vaccine (#1) 2025 8, 03/19/2016, 03/08/2012, Additional history exists DTaP/Tdap/Td Vaccine (8 - Td or Tdap) 05/14/2033 05/14/2023, 03/08/2012, 11/05/2004, Additional history exists Hepatitis B Vaccine Completed 07/07/2001, 07/07/2001, 2000, Additional history exists Hepatitis A Vaccine Completed 12/03/2006, 12/03/2006, 11/05/2004, Additional history exists Varicella Vaccine Completed 12/27/2010, 10/08/2001 HPV Vaccine Completed 12/14/2015, 12/09, 12/26/2014, Additional history exists Meningococcal Vaccine Completed 10/26/2017 , 03/08/2012, 03/08/2012 Meningococcal Serogroup B Vaccine Completed 020, 10/26/2017 Insurance [facility] Member Subscriber Plan / Payer (Ef fective 2023-Present) Name:Jaciel Rowan Relation to Subscriber:Self Name:Jaciel Rowan Payer ID:Not on file Group ID:Not on file Type:T19 HMO Address: [address] [facility] [place] [address] [place] [address] Member Subscriber Plan / Payer (Ef fective 2023-Present) Name:Jaciel Rowan Relation to Subscriber:Self Name:Jaciel Rowan Payer ID:Not on file Group ID:Not on file Type:[id number] [facility] Address: [address] [address] Advance Directives * Full Resuscitation (Latest Code Status on File) Date Activated Date Inactivated Comments 11/15/2023 6:43 AM 11/16/2023 6:28 PM Care Teams Dat Instructor Relationship Specialty Start Date End Date Pcp Outside [facility], Unknown NO KNOWN ADDRESS ON FILE PCP - General 11/25/23
--- OUTSIDE RECORDS SUMMARY | 2025-01-20 17:34 | XMS_ITS | Clinical Summary ---
Author Organization [facility] Address [address] [place] [address] Phone Care Team Providers Care Headwaitress Name Role Phone Unavailable Primary Care Provider Unavailabl e Allergies Active Allergy Reactions Criticality Noted Date Comments Egg Anaphylaxis High 07/01/2024 Fish Containing Products Anaphylaxis High 07/01/2024 Milk Containing Products (Dairy) Shortness of Breath/Wheezing High 07/01/2024 Tree Nuts Anaphylaxis High 07/01/2024 Medications multivitamin tx with iron and folic acid tablet 18-400 mg-mcg Tablet Starting 07/08/24: Take 1 Tablet by mouth daily. 60 Tablet 07/07/2024 6:26 PM WOOD BOX MAKER 5 Active pantoprazole (Protonix) 40 mg Tablet, Delayed Release (E.C.) Take 1 Tablet (40 mg) by mouth daily. 60 Tablet 07/07/2024 6:26 PM WOOD BOX MAKER 5 Active folic acid (FOLVITE) 1 mg tablet Take 1 Tablet (1 mg) by mouth daily. 90 Tablet 3 5 Active albuterol sulfate HFA 90 mcg/actuation aerosol inhaler Take 2 Puffs by inhalation every 4 hours as needed. 4 Active Active Problems Problem Noted Date Diagnosed Date Pancolitis 07/07/2024 Acute cholecystitis 07/07/2024 Bilateral leg edema 07/07/2024 Acute diarrhea 07/03/2024 Other shock 07/02/2024 Vitamin D deficiency 07/02/2024 Coagulopathy 07/02/2024 Acute blood loss anemia 07/02/2024 Colitis 07/02/2024 Macrocytic anemia with vitamin B12 deficiency Acute hemolytic anemia 07/01/2024 Severe sepsis 07/01/2024 Pneumonia of both lower lobes 07/01/2024 Thickening of wall of gallbladder 07/01/2024 Hyperbilirubinemia 07/01/2024 Hypoalbuminemia 07/01/2024 Protein-calorie malnutrition 07/01/2024 Anasarca 07/01/2024 Sinus tachycardia 07/01/2024 Chronic bilateral pleural effusions 07/01/2024 Pericardial effusion 07/01/2024 Encounters Date Type Department Care Team Description 01/10/2025 External Device Data [facility] Provider, Abstract 01/03/2025 External Device Data [facility] Provider, Abstract 12/27/2024 External Device Data [facility] Provider, Abstract 11/08/2024 External Device Data [facility] Provider, Abstract from Last 3 Months Social History Tobacco Use Types Packs/Day Years Used Date Smoking Tobacco: Never Tobacco Cessation:Counseling Given: Not Answered Alcohol Use Standard Drinks/Week Comments Never 0 (1 standard drink = 0.6 oz pur e alcohol) Feeling Safe Answer Date Recorded Are you in a relationship wi th someone who hurts you emotionally and/or physically? No 07/04/2024 Sex and Gender Information Value Date Recorded Sex Assigned at Not on file Legal Sex Male 9:35 AM WOOD BOX MAKER Gender Identity Not on file Sexual Orientation Not on file Last Filed Vital Signs Vital Sign Reading Time Taken Comments Blood Pressure 102/62 08/23/2024 1:57 PM CDT Pulse 87 08/23/2024 1:57 PM CDT Temperature 36.3 C (97.3 F) 07/19/2024 10:12 AM CDT Respiratory Rate 16 07/19/2024 10:12 AM CDT Oxygen Saturation 99% 08/23/2024 1:57 PM CDT Inhaled Oxygen Concentration - - Weight 57.6 kg (127 lb) 08/23/2024 1:57 PM CDT Height 170.2 cm (5' 7) 08/23/2024 1:57 PM CDT Body Mass Index 19.89 08/23/2024 1:57 PM CDT Plan of Treatment Upcoming Encounters Date Type Department Care Team (Late st Contact Info) Description 03/21/2025 2:15 PM WOOD BOX MAKER Office Visit [facility] Heart and Vascular - [address] [facility] [address] [facility] [facility] [address] [place] [address] [place] [address] [facility] [address] [place] [address] Health Maintenance Due Date Last Done Comments INFLUENZA VACCINE (#1) 2024 05/28/2017, 2015 DTAP/TDAP/TD VACCINES (8 - T d or Tdap) 05/14/2033 05/14/2023, 03/08/2012, 11/05/2004, Additional history exists HEPATITIS B VACCINES Completed 07/07/2001, 2000, 2000, Additional history exists HPV VACCINES Completed 12/14/2015, 12/09, 04/07/2012, Additional history exists Insurance RX [employer] Commercial [employer] (INTERNAL) [facility] Internal Plans Advance Directives For more information, please contact: [phone] * Full Code (Latest Code Status on File) Date Activated Date Inactivated Comments 07/01/2024 3:58 PM 07/07/2024 8:39 PM
[2025-01-20] MEDS: FAMOTIDINE 20 MG/2 ML VIAL IV PUSH (18:02)
[2025-01-20 18:04] VITALS: BP 118/71; PULSE 113; RESP 22; O2SAT 98
--- NOTE | 2025-01-20 19:07 | ED_ITS ---
HPI - Allergic Reaction General Chief complaint: Allergic Reaction Stated complaint: allergic reaction Time Seen by Provider: 01/20/25 17:15 Source: patient Mode of arrival: EMS Limitations: no limitations History of Present Illness HPI narrative: Patient presents the emergency department for a possible allergic reaction. Reports he had just eaten [place] [employer]. He started to develop swelling around his lips and mouth. EMS was called. Patient given Solu-Medrol, Benadryl, and epinephrine, nebulizer treatment. Patient with relief upon arrival to the ER. No symptoms currently. Related Data Home Medications ?Medication ?Instructions ?Recorded ?Confirmed ?Last Taken ?Type albuterol 90 mcg/actuation aerosol 90 mcg inhalation P RN 03/24/21 03/24/21 Unknown History inhaler Allergies Allergy/AdvReac Type Severity Reaction Status Date / Time egg Allergy Anaphylaxis Verified 01/20/25 17:21 Fish Containing Products Allergy Anaphylaxis Verified 01/20/25 17:21 tree nut Allergy Anaphylaxis Verified 01/20/25 17:21 dairy Allergy Anaphylaxis Uncoded 07/01/24 06:50 Review of Systems Review of Systems: All systems reviewed & are unremarkable except as noted in HPI and below PMFSH Past Medical History Medical History Asthma Surgical History Surgical History No pertinent past surgical history Family History Family History Mother No pertinent past medical history Social History Social History Smoking status: Never smoker Substance use: never Living arrangements: with roommate(s) Additional living arrangements comments: student apartment Occupation/Education: student Gender identity (if verbalized by the patient): Male Spiritual care concerns: No Exam Narrative: GENERAL: Well-appearing, well-nourished, and in no acute distress. HEAD: Normocephalic, atraumatic. EYES: EOMI. ENT: Nares clear, no rhinorrhea or epistaxis. Mucous membranes moist. Oropharynx without tonsillar hypertrophy exudate or other lesions. CHEST: Clear to auscultation. No respiratory distress. No wheezes rales or rhonchi HEART: Regular rate and rhythm. No murmur heard. Normal peripheral pulses. EXTREMITIES: Normal range of motion. No edema. SKIN: Warm, dry, no rash. NEURO: No focal deficits. Alert and oriented x3. PSYCH: Normal mood and affect Course Course Emergency Course: Patient with continued improvement, ready for discharge. Vital Signs Vital signs: Vital Signs Temperature 97.7 F 01/20/25 17:01 Pulse Rate 114 H 01/20/25 17:01 Respiratory Rate 22 H 01/20/25 17:01 Blood Pressure 110/70 01/20/25 17:01 Pulse Oximetry 97 01/20/25 17:01 Oxygen Delivery Room Air 01/20/25 17:01 Temperature 97.7 F 01/20/25 17:20 Pulse Rate 103 H 01/20/25 20:58 Respiratory Rate 17 01/20/25 20:58 Blood Pressure 126/73 01/20/25 20:58 Pulse Oximetry 98 01/20/25 20:58 Oxygen Delivery Room Air 01/20/25 17:18 MDM - Allergic Reaction MDM Narrative Medical decision making narrative: Patient presents to the emergency department for an allergic reaction. Patient had been given albuterol, epinephrine, Solu-Medrol by EMS prior to arrival. Symptoms had largely resolved. Patient was monitored in the ER for 4 hours with continued improvement in his condition. Will be discharged with refill for EpiPen. He is to follow up with PCP. He was given warnings to return to the ER Differential Diagnosis Differential diagnosis: Likely anaphylaxis, allergic reaction, angioedema, adverse reaction to drug and urticaria Critical Care Time Critical Care Time Critical Care Time: No Discharge Plan Discharge Clinical Impression: Allergic reaction Qualifiers: Encounter type: initial encounter Qualified Code(s): T78.40XA - Allergy, unspecified, initial encounter Patient Disposition: Home Condition: Improved Instructions: Epinephrine (By injection), General Allergic Reaction (ED) Additional Instructions: Return to the emergency department if you experience difficulty swallowing, trouble breathing, or any other symptoms that are concerning to you Take a Pepcid and Claritin daily. Benadryl as needed Follow-up with your primary care doctor Patient Language: Tajik Prescriptions: New epinephrine [EpiPen 2-Roni] 0.3 mg/0.3 mL auto-injector 0.3 mg IM Q5-15M PRN (Reason: anaphylaxis) Qty: 2 0RF Rx Instructions: do not exceed 3 doses per episode No Action albuterol 90 mcg/actuation Aerosol 90 mcg INHALATION PRN oxycodone-acetaminophen [Percocet] 5-325 mg tablet 1 - 2 tablet PO Q6H PRN (Reason: pain) Qty: 20 0RF Follow-up/Referrals: UNKNOWN,DOCTOR [Primary Care Provider]
[2025-01-20] MEDS: SODIUM CHLORIDE 0.9% IV 1,000 ML 999 ML IV CONT (19:33)
[2025-01-20 20:58] VITALS: BP 126/73; PULSE 103; RESP 17; O2SAT 98
== END 2025-01-20 21:00 | disposition home or self-care (01) ==
PROVIDERS: Emergency Provider Physician Assistant
DX: T78.40XA Allergy, unspecified, initial encounter (principal); J45.909 Unspecified asthma, uncomplicated
CPT/HCPCS: 96361; 96374; 99284; J7030

== ENCOUNTER 2025-02-20 02:04 | Emergency (ER) | payer OTHER, SELFPAY ==
[2025-02-20] VITALS (9 sets, daily range): BP systolic 99–131; BP diastolic 55–72; PULSE 72–100; RESP 14–18; TEMP 36.8; O2SAT 94–100
--- NOTE | ~2025-02-20 | XR_ITS ---
Examination: XR wrist RT min 3V Clinical History: injury, pain Comparison: None Technique: 3 views right wrist Findings/impression: 1. Nondisplaced fracture distal radius. 2. Nondisplaced fracture ulnar styloid. Reviewed, dictated and finalized at location R.
--- OUTSIDE RECORDS SUMMARY | 2025-02-20 02:07 | XMS_ITS | Clinical Summary ---
Author Organization [facility] Address [address] [place] [address] Phone Care Team Providers Care Care Provider Name Role Phone Unavailable Primary Care Provider [...] mouth daily. 60 Tablet 07/07/2024 6:26 PM DEVELOPMENT TEAM LEAD 5 Active pantoprazole (Protonix) 40 mg Tablet, Delayed Release (E.C.) Take 1 Tablet (40 mg) by mouth daily. 60 Tablet 07/07/2024 6:26 PM DEVELOPMENT TEAM LEAD 5 Active folic acid (FOLVITE) 1 mg [...] Encounters Date Type Department Care Team Description 02/14/2025 External Device Data [facility] Provider, Abstract 02/14/2025 External Device Data [facility] Provider, Abstract 01/24/2025 External Device Data [facility] Provider, Abstract 01/24/2025 External Device Data [facility] Provider, Abstract 01/10/2025 External Device Data [facility] Provider, [...] on file Legal Sex Male 9:35 AM DEVELOPMENT TEAM LEAD Gender Identity Not on file Sexual Orientation [...] st Contact Info) Description 03/21/2025 2:15 PM DEVELOPMENT TEAM LEAD [facility] [address] [facility] [address] [place] [address] [place] [address] [address] [place] [address] Health Maintenance Due Date Last Done Comments INFLUENZA VACCINE (#1) 2024 05/28/2017, 2015 DTAP/TDAP/TD VACCINES (8 - T d or Tdap) 05/14/2033 05/14/2023, 03/08/2012, 11/05/2004, Additional history exists HEPATITIS B VACCINES Completed 07/07/2001, 2000, 2000, Additional history exists HPV VACCINES Completed 12/14/2015, 12/09, 04/07/2012, Additional history exists Insurance RX [employer] Commercial RX [employer] (INTERNAL) [facility] Internal Plans Advance Directives For more information, please contact: [phone] * Full Code (Latest Code Status on File) Date Activated Date Inactivated Comments 07/01/2024 3:58 PM 07/07/2024 8:39 PM
--- NOTE | 2025-02-20 03:58 | ED.UPPEXIN ---
HPI - Extremity Injury (Upper) General Chief Complaint: Extremity Injury, Upper Stated Complaint: R wrist injury/pain Time Seen by Provider: 02/20/25 04:06 Source: patient and EMS Mode of arrival: EMS Limitations: no limitations History of Present Illness HPI narrative: Patient is a 24-year-old male presents to the emergency department by EMS complaining of a right wrist injury. Patient notes just prior to arrival she was running and came to a door and thought she would be able to just push it open but it was locked and she tried to push the door open with her right hand and it did not move and immediately developed pain in her right wrist. Patient denies any other injuries. Patient denies history of any wrist injuries but admits to history of a broken bone in her right upper arm. Patient denies any use of blood thinners. Patient denies any focal weakness or numbness. Patient denies tingling. Patient reportedly took Tylenol and Motrin prior to arrival. Patient denies any blood loss. Patient denies alcohol or illicit drug use. Patient is right-handed. Related Data Home Medications ?Medication ?Instructions ?Recorded ?Confirmed ?Last Taken ?Type albuterol 90 mcg/actuation aerosol 90 mcg inhalation PRN 03/24/21 03/24/21 Unknown History inhaler Allergies Allergy/AdvReac Type Severity Reaction Status Date / Time egg Allergy Anaphylaxis Verified 02/20/25 02:11 Fish Containing Products Allergy Anaphylaxis Verified 02/20/25 02:11 tree nut Allergy Anaphylaxis Verified 02/20/25 02:11 dairy Allergy Anaphylaxis Uncoded 07/01/24 06:50 Review of Systems Review of Systems: A 10 system review of systems was completed on the patient and is negative except for what is stated in the HPI. Nursing and ancillary documentation was reviewed. [facility] Past Medical History Medical History Asthma Surgical History Surgical History No pertinent past surgical history Family History Family History Mother No pertinent past medical history Social History Social History Smoking status: Never smoker Substance use: never Living arrangements: with roommate(s) Additional living arrangements comments: student apartment Occupation/Education: student Gender identity (if verbalized by the patient): Male Spiritual care concerns: No Exam Narrative: CONST: No acute distress. Well nourished. HENMT: Head is normocephalic and atraumatic. Moist mucous membranes. No posterior oropharynx erythema. EYES: No scleral icterus. No conjunctival injection or pallor. PERRL. NECK: No meningeal signs. RESP: Able to speak in full sentences. Normal respiratory effort. CTAB. CARDIO: Regular rate. Regular rhythm. 2+ DP and radial pulses bilaterally. GI: Nondistended. No tenderness to palpation. Soft. : No CVA tenderness to palpation. SKIN: No rashes or lesions noted on exposed skin. NEURO: Oriented x3. Moves all extremities. Sensation intact to light touch throughout the axillary in median radial and ulnar nerve distribution to the right upper extremity. Patient is able to make a fist and abduct and adduct all of her fingers and make an okay sign with her right hand. EXTREM/MSK/BACK: No pedal edema. Compartments are soft throughout the right upper extremity. No breaks in the skin of the right upper extremity. Mild tenderness to palpation of the distal forearm with mild swelling, no skin tenting. Capillary refill is less than 2 seconds in all distal digits of the right hand. No other extremity tenderness to palpation. No snuffbox tenderness to palpation. PSYCH: Normal affect. Course Vital Signs Vital signs: Vital Signs Temperature 98.3 F 02/20/25 02:08 Pulse Rate 100 02/20/25 02:08 Respiratory Rate 18 02/20/25 02:08 Blood Pressure 131/72 02/20/25 02:08 Pulse Oximetry 100 02/20/25 02:08 Oxygen Delivery Room Air 02/20/25 02:08 Temperature 98.3 F 02/20/25 02:08 Pulse Rate 72 02/20/25 04:01 Respiratory Rate 14 02/20/25 04:01 Blood Pressure 128/68 02/20/25 04:01 Pulse Oximetry 95 02/20/25 04:01 Oxygen Delivery Room Air 02/20/25 02:08 Procedures Orthopedic Splinting/Casting Injury #1: Splinting/Casting Date: 02/20/25 Splinting/Casting Time: 05:50 Side: right Upper Extremity Injury Location: wrist Upper Extremity Immobilizer: sugar tong splint Splint: prefabricated Pre-Procedure Neuro Vascular Exam: normal Post-Procedure Neuro Vascular Exam: normal MDM - Extremity Injury (Upper) MDM Narrative Medical decision making narrative: Patient presents with the above complaint. Initial vitals are remarkable for no significant abnormalities. Physical examination as noted above. Differential diagnosis includes was not limited to: Fracture, contusion, sprain, strain, other acute traumatic injury. Plan discussed: Right wrist x-ray, [place], ice pack, extremity elevation. Right wrist x-ray preliminary radiology impression is fracture of the distal radial diametaphysis. Fracture of the ulnar styloid. No dislocation. Ortho consulted, pending call back. No call back Orthopedics at this time, I called stat rad to discuss the imaging with the radiologist, pending call back from radiologist at this time to determine whether not there may be any benefit from any fracture reduction as I do not appreciate much of any displacement on my review of the x-ray however would like to speak with radiology to determine their perspective on whether fracture reduction is indicated. I spoke with Radiology who notes no fracture displacement, no angulation, there is anatomic alignment, no intra-articular involvement. Will place patient in a sugar-tong splint and follow-up with orthopedics in 5 days. Patient was reassessed at the bedside. No changes in physical exam. Patient is in no acute distress. The patient has remained stable throughout the entire ED visit. Splint in place, neurovascularly intact. Counseled patient regarding diagnostic results and potential diagnosis. Anticipatory guidance provided. Patient instructed to follow up with Orthopedics in 5 days. Patient educated on signs and symptoms of compartment syndrome and reasons to immediately return to the emergency department. Patient counseled on: false reassurance from an emergency department evaluation; no current evidence of a medical emergency; return immediately for any new, recurrent, worsening, concerning, or refractory symptoms. Patient prescribed Motrin and [place]. Prescription sent to preferred pharmacy. Medications discussed with patient. Additional verbal and printed discharge instructions were given and discussed with the patient. Patient verbally acknowledges understanding of condition and discharge instructions. All questions were answered to the patient's satisfaction. Patient is in agreement with the plan of care. The patient is stable for discharge and was discharged without incident. Discharge Plan Discharge Clinical Impression: Distal radius fracture, right Qualifiers: Encounter type: initial encounter Fracture type: closed Fracture morphology: unspecified fracture morphology Qualified Code(s): S52.501A - Unspecified fracture of the lower end of right radius, initial encounter for closed fracture Fracture of right ulnar styloid Qualifiers: Encounter type: initial encounter Fracture type: closed Fracture alignment: nondisplaced Qualified Code(s): S52.614A - Nondisplaced fracture of right ulna styloid process, initial encounter for closed fracture Patient Disposition: Home Condition: Stable Instructions: Antibiotic Form, Wrist Fracture in Adults (ED), Splint Care (ED), P.R.I.C.E. Treatment (ED) Additional Instructions: Follow-up with Orthopedic surgery in 5 days, call to schedule appointment. Keep your right arm elevated above your heart to help swelling, keep the splint on at all times. Take Motrin and norco as needed for any discomfort. Return immediately to the emergency department for any new or concerning symptoms especially tingling, numbness, weakness, fever, sudden increase in pain, or any emergent concerns for life, limb, eyesight. Patient Language: Cymro Prescriptions: New hydrocodone-acetaminophen 5-325 mg tablet 1 tablet PO Q6H MDD 4 tabs PRN (Reason: pain) 3 Days Qty: 12 0RF ibuprofen 400 mg tablet 400 mg PO Q6H PRN (Reason: pain) Qty: 30 0RF No Action epinephrine [EpiPen 2-Roni] 0.3 mg/0.3 mL auto-injector 0.3 mg IM Q5-15M PRN (Reason: anaphylaxis) Qty: 2 0RF Rx Instructions: do not exceed 3 doses per episode albuterol 90 mcg/actuation Aerosol 90 mcg INHALATION PRN oxycodone-acetaminophen [Percocet] 5-325 mg tablet 1 - 2 tablet PO Q6H PRN (Reason: pain) Qty: 20 0RF Follow-up/Referrals: Uriel Osuna MD [Physician, Orthopedics] - 02/24/25 UNKNOWN,DOCTOR [Non-Staff] Time of Disposition: 05:44
[2025-02-20] MEDS: HYDROcodone/acetaminophen (*CRX) 5-325 MG TABLET 1 TAB PO (04:15)
== END 2025-02-20 06:41 | disposition home or self-care (01) ==
PROVIDERS: Emergency Provider Student in an Organized Health Care Education/Training Program
DX: S52.501A Unspecified fracture of the lower end of right radius, initial encounter for closed fracture (principal); S52.614A Nondisplaced fracture of right ulna styloid process, initial encounter for closed fracture; W22.09XA Striking against other stationary object, initial encounter
CPT/HCPCS: 29125; 73110; 99284; A9270

== ENCOUNTER 2025-03-02 13:50 | Emergency (ER) | payer OTHER, SELFPAY ==
[2025-03-02 13:54] VITALS: BP 117/61; PULSE 105; RESP 15; TEMP 37.4; O2SAT 99
[2025-03-02 13:58] VITALS: O2SAT 99
--- NOTE | 2025-03-02 14:36 | ED_ITS ---
HPI - URI/Sore Throat General Chief Complaint: Upper Respiratory Infection Stated Complaint: asthma Time Seen by Provider: 03/02/25 13:59 Source: patient Mode of arrival: ambulatory Limitations: no limitations History of Present Illness HPI Narrative: 24-year-old with a history of asthma presents to the ER with a complaint of nonproductive cough for past 2 days. Patient states that he is also short of breath he ran out of his inhalers. Denies any fever or chills. MD elicited complaint: cough Pertinent past history: asthma Onset (ago): day(s) (2) Consistency: intermittent Severity: mild Exacerbating factors: nothing Relieving factors: nothing Related Data Home Medications ?Medication ?Instructions ?Recorded ?Confirmed ?Last Taken ?Type albuterol 90 mcg/actuation aerosol 90 mcg inhalation P RN 03/24/21 03/02/25 Unknown History inhaler Allergies Allergy/AdvReac Type Severity Reaction Status Date / Time egg Allergy Anaphylaxis Verified 03/02/25 13:03 Fish Containing Products Allergy Anaphylaxis Verified 03/02/25 13:03 tree nut Allergy Anaphylaxis Verified 03/02/25 13:03 dairy Allergy Anaphylaxis Uncoded 03/02/25 13:03 Review of Systems Review of Systems: All systems reviewed & are unremarkable except as noted in HPI and below Constitutional: Constitutional: Reports no additional constitutional complaints Eyes: Eyes: Reports no additional eye complaints ENT: Reports system reviewed and no additional complaints, except as documented Cardiovascular: Cardiovascular: Reports no additional cardiovascular complaints Respiratory: Respiratory: Reports as per HPI Gastrointestinal: Gastrointestinal: Reports no additional gastrointestinal complaints Genitourinary: Genitourinary: Reports no additional male genitourinary complaints Integumentary/Breasts: Skin/Breast: Reports system reviewed and no additional complaints, except as docu PMFSH Past Medical History Medical History Asthma Surgical History Surgical History No pertinent past surgical history Family History Family History Mother No pertinent past medical history Social History Social History Smoking status: Never smoker Substance use type: does not use Living arrangements: with roommate(s) Additional living arrangements comments: student apartment Occupation/Education: student Gender identity (if verbalized by the patient): Male Spiritual care concerns: No Exam Narrative: GENERAL: Well-appearing, well-nourished, and in no acute distress. HEAD: Normocephalic, atraumatic. EYES: PERRLA and EOMI. ENT: Nares clear, no rhinorrhea or epistaxis. Mucous membranes moist. NECK: Supple. CHEST: Clear to auscultation. No respiratory distress. HEART: Regular rate and rhythm. No murmur heard. Normal peripheral puls EXTREMITIES: Normal range of motion. No edema. SKIN: Warm, dry, no rash. NEURO: No focal deficits. Alert and oriented x3. PSYCH: Normal mood and affect. Course Course Emergency Course: Advised him take medication as prescribed, follow-up with his primary doctor. Vital Signs Vital signs: Vital Signs Temperature 37.4 C 03/02/25 13:54 Pulse Rate 105 H 03/02/25 13:54 Respiratory Rate 15 03/02/25 13:54 Blood Pressure 117/61 03/02/25 13:54 Pulse Oximetry 99 03/02/25 13:54 Oxygen Delivery Room Air 03/02/25 13:54 Temperature 37.4 C 03/02/25 13:54 Pulse Rate 105 H 03/02/25 13:54 Respiratory Rate 15 03/02/25 13:54 Blood Pressure 117/61 03/02/25 13:54 Pulse Oximetry 99 03/02/25 13:58 Oxygen Delivery Room Air 03/02/25 13:58 Discharge Plan Discharge Clinical Impression: Asthma Qualifiers: Asthma severity: mild Asthma persistence: intermittent Asthma complication type: uncomplicated Qualified Code(s): J45.20 - Mild intermittent asthma, uncomplicated Upper respiratory infection Qualifiers: URI type: unspecified viral URI Qualified Code(s): J06.9 - Acute upper respiratory infection, unspecified Patient Disposition: Home Condition: Stable Instructions: Asthma (ED) Patient Language: Pashto Prescriptions: New prednisone 20 mg tablet 20 mg PO BID Qty: 10 0RF albuterol sulfate 90 mcg/actuation HFA aerosol inhaler 2 inh inhalation Q8H PRN (Reason: shortness of breath or wheezing) Qty: 6.7 0RF No Action epinephrine [EpiPen 2-Roni] 0.3 mg/0.3 mL auto-injector 0.3 mg IM Q5-15M PRN (Reason: anaphylaxis) Qty: 2 0RF Rx Instructions: do not exceed 3 doses per episode hydrocodone-acetaminophen 5-325 mg tablet 1 tablet PO Q6H MDD 4 tabs PRN (Reason: pain) 3 Days Qty: 12 0RF ibuprofen 400 mg tablet 400 mg PO Q6H PRN (Reason: pain) Qty: 30 0RF albuterol 90 mcg/actuation Aerosol 90 mcg INHALATION PRN oxycodone-acetaminophen [Percocet] 5-325 mg tablet 1 - 2 tablet PO Q6H PRN (Reason: pain) Qty: 20 0RF Follow-up/Referrals: PHYSICIAN,ACTIVITIES COORDINATOR [Primary Care Provider, Internal Medicine] Castillo Galo MD [Physician, Family Practice] Time of Disposition: 14:34
--- OUTSIDE RECORDS SUMMARY | 2025-03-02 14:50 | XMS_ITS | Clinical Summary ---
Author Organization [facility] Address [address] [place] [address] Phone Care Team Providers Care Global Marketing Specialist Name Role Phone Unavailable Primary Care Provider [...] mouth daily. 60 Tablet 07/07/2024 6:26 PM LASTER HAND 5 Active pantoprazole (Protonix) 40 mg Tablet, Delayed Release (E.C.) Take 1 Tablet (40 mg) by mouth daily. 60 Tablet 07/07/2024 6:26 PM LASTER HAND 5 Active folic acid (FOLVITE) 1 mg [...] Encounters Date Type Department Care Team Description 03/01/2025 External Device Data STL ABSTRACTION Provider, Abstract [...] on file Legal Sex Male 9:35 AM LASTER HAND Gender Identity Not on file Sexual Orientation [...] st Contact Info) Description 03/21/2025 2:15 PM LASTER HAND Office Visit [facility] Heart and Vascular - [address] [facility] [address] [address] [facility] [address] [place] [address] [place] [address] [facility] [address] [place] [address] Health Maintenance Due Date Last [...] Advance Directives For more information, please contact: [phone] * Full Code (Latest Code Status on File) Date Activated Date Inactivated Comments 07/01/2024 3:58 PM 07/07/2024 8:39 PM
--- OUTSIDE RECORDS SUMMARY | 2025-03-02 14:50 | XMS_ITS | Clinical Summary ---
Author Organization [facility] Address [address] [place] [address] Care Team Providers Care Management Retail Intern Name Role Phone Pcp Outside [facility], Unknown Primary Care Provider U navailable Allergies [...] Overview (09/09/2019): Due to hypocalcemia- hosp at [facility] Due to hypocalcemia- hosp at [facility] Non-adherence to medical treatment 05/22/2016 Vitamin B12 [...] = 0.6 oz pur e alcohol) social [employer] Util[employer] Answer Date Recorded In the past [...] phone, visiting friends or family, going to synagogue or club meetings) 5 or more times [...] Serogroup B Vaccine Completed 020, 10/26/2017 Insurance [facility] Member Subscriber Plan / Payer (Ef fective 2023-Present) Name:Jaciel Rowan Relation to Subscriber:Self Name:Jaciel Rowan Payer ID:Not on file Group ID:Not on file Type:[id number] HMO Address: [address] [facility] [place] [address] [place] [address] Member Subscriber Plan / Payer (Ef fective 2023-Present) Name:Jaciel Rowan Relation to Subscriber:Self Name:Jaciel Rowan Payer ID:Not on file Group ID:Not on file Type:[id number] [facility] Address: [address] [address] Advance Directives * Full Resuscitation (Latest Code Status on File) Date Activated Date Inactivated Comments 11/15/2023 6:43 AM 11/16/2023 6:28 PM Care Teams Management Retail Intern Relationship Specialty Start Date End Date Pcp Outside [facility], Unknown NO KNOWN ADDRESS ON FILE PCP - General 11/25/23
--- OUTSIDE RECORDS SUMMARY | 2025-03-02 14:50 | XMS_ITS | Encounter Summary ---
Author Organization [facility] Address [address] [place] [address] Care Team Providers Care Eligibility Technician Name Role Phone Unavailable Primary Care Provider Unavailabl e Encounter Details Date Type Department Care Team (Late st Contact Info) Description 03/01/2025 External Device Data STL ABSTRACTION Provider, Abstract NO ADDRESS ON FILE Social History Tobacco Use Types Packs/Day Years Used Date Smoking Tobacco: Never Alcohol Use Standard Drinks/Week Comments Never 0 (1 standard drink = 0.6 oz pur e alcohol) Feeling Safe Answer Date Recorded Are you in a relationship wi th someone who hurts you emotionally and/or physically? No 07/04/2024 Sex and Gender Information Value Date Recorded Sex Assigned at Not on file Legal Sex Male 9:35 AM FOOT SETTER Gender Identity Not on file Sexual Orientation Not on file documented as of this encounter Plan of Treatment Upcoming Encounters Date Type Department Care Team (Late st Contact Info) Description 03/21/2025 2:15 PM FOOT SETTER Office Visit [facility] Heart and Vascular - [address] [facility] [address] [address] [address] [facility] [address] [place] [address] [place] [address] [address] [facility] [address] [place] [address] documented as of this encounter Visit Diagnoses Not on filedocumented in this encounter
--- OUTSIDE RECORDS SUMMARY | 2025-03-02 15:15 | XMS_ITS | Clinical Summary ---
Author Organization [facility] Address [address] [place] [address] Phone Care Team Providers Care Tank Setter Helper Name Role Phone Unavailable Primary Care Provider [...] mouth daily. 60 Tablet 07/07/2024 6:26 PM PULLMAN CAR CLERK 5 Active pantoprazole (Protonix) 40 mg Tablet, Delayed Release (E.C.) Take 1 Tablet (40 mg) by mouth daily. 60 Tablet 07/07/2024 6:26 PM PULLMAN CAR CLERK 5 Active folic acid (FOLVITE) 1 mg [...] on file Legal Sex Male 9:35 AM PULLMAN CAR CLERK Gender Identity Not on file Sexual Orientation [...] st Contact Info) Description 03/21/2025 2:15 PM PULLMAN CAR CLERK Office Visit [facility] Heart and Vascular - [address] [facility] [address] [address] [facility] [address] [address] [place] [address] [place] [address] [facility] [address] [place] [address] Health Maintenance Due Date Last [...] Advance Directives For more information, please contact: [phone] * Full Code (Latest Code Status on File) Date Activated Date Inactivated Comments 07/01/2024 3:58 PM 07/07/2024 8:39 PM
--- OUTSIDE RECORDS SUMMARY | 2025-03-02 15:15 | XMS_ITS | Encounter Summary ---
Author Organization [facility] Address [address] [place] [address] Care Team Providers Care Diathermy Equipment Repairer Name Role Phone Unavailable Primary Care Provider [...] on file Legal Sex Male 9:35 AM PLASTICS PLATER Gender Identity Not on file Sexual Orientation Not on file documented as of this encounter Plan of Treatment Upcoming Encounters Date Type Department Care Team (Late st Contact Info) Description 03/21/2025 2:15 PM PLASTICS PLATER Office Visit [facility] Heart and Vascular - [address] [facility] [address] [address] [address] [facility] [address] [place] [address] [place] [address] [address] [facility] [address] [place] [address] documented as of this encounter Visit Diagnoses Not on filedocumented in this encounter
--- OUTSIDE RECORDS SUMMARY | 2025-03-02 15:15 | XMS_ITS | Clinical Summary ---
Author Organization [facility] Address [address] [place] [address] Care Team Providers Care Singe Machine Operator Name Role Phone Pcp Outside [facility], Unknown Primary Care Provider U navailable [...] Overview (09/09/2019): Due to hypocalcemia- hosp at [facility] Due to hypocalcemia- hosp at [facility] Non-adherence to medical treatment 05/22/2016 Vitamin B12 [...] = 0.6 oz pur e alcohol) social [employer] Utilities Answer Date Recorded In the past [...] phone, visiting friends or family, going to catholic or club meetings) 5 or more times [...] Serogroup B Vaccine Completed 020, 10/26/2017 Insurance [facility] Member Subscriber Plan / Payer (Ef fective 2023-Present) Name:Jaicel Rowan Relation to Subscriber:Self Name:Jaciel Rowan Payer ID:Not on file Group ID:Not on file Type:T19 HMO Address: [address] [facility] [place] [address] [place] [address] Member Subscriber Plan / Payer (Ef fective 2023-Present) Name:Jaciel Rowan Relation to Subscriber:Self Name:Jaciel Rowan Payer ID:Not on file Group ID:Not on file Type:[id number] [facility] Address: [address] [address] Advance Directives * Full Resuscitation (Latest Code Status on File) Date Activated Date Inactivated Comments 11/15/2023 6:43 AM 11/16/2023 6:28 PM Care Teams Singe Machine Operator Relationship Specialty Start Date End Date Pcp Outside [facility], Unknown NO KNOWN ADDRESS ON FILE PCP - General 11/25/23
== END 2025-03-02 14:39 | disposition home or self-care (01) ==
PROVIDERS: Emergency Provider Family Medicine
DX: J45.20 Mild intermittent asthma, uncomplicated (principal); J06.9 Acute upper respiratory infection, unspecified
CPT/HCPCS: 99283